=== PATIENT | male | born 1940 | race Caucasian/White ===

== ENCOUNTER 2022-10-18 14:02 | Emergency (ER) | payer OTHER, SELFPAY ==
[2022-10-18 14:28] VITALS: BP 113/54; PULSE 80; RESP 18; TEMP 35.9; O2SAT 100
[2022-10-18 15:55] LABS: Basophils % 0.2 %; Eosinophils # 0.1 10^3/uL (0.0-0.8); Eosinophils % 1.2 %; Hematocrit 24.7 % (42.0-52.0); Hemoglobin 7.9 g/dL (11.7-16.6); Lymphocytes # 1.1 10^3/uL (0.8-4.8); Lymphocytes % 12.6 %; Mean Corpuscular Volume 96.9 fl (80-94); Mean Platelet Volume 8.5 fL (7.4-10.4); Monocytes # 0.6 10^3/uL (0.2-0.9); Monocytes % 7.3 %; Neutrophils # 6.67 10^3/uL (1.8-7.7); Neutrophils % 78.2 %; Nucleated Red Blood Cells % 0 %; Platelet Count 381 10^3/cmm (130-400); Red Blood Count 2.55 10^6/uL (4.1-5.3); Red Cell Distribution Width 13.5 % (12.1-15.1); White Blood Count 8.5 10^3/uL (4.0-10.0)
[2022-10-18 15:58] VITALS: BP 122/60; PULSE 69; RESP 22; TEMP 36.9; O2SAT 100
[2022-10-18 16:01] VITALS: PULSE 70; RESP 20; O2SAT 100
--- NOTE | 2022-10-18 16:14 | W.ED.NAVMDI ---
HPI - Nausea/Vomiting/Diarrhea General: Chief complaint: Nausea/Vomiting/Diarrhea Stated complaint: Not able to stop going number 2 Time Seen by Provider: 10/18/22 15:36 History of Present Illness: 82-year-old male presents with diarrhea. Patient reports ports that he has been having diarrhea for couple days nonstop patient denies any abdominal pain, nausea vomiting, fevers chills or cough. Family reports that he has a loose rectal sphincter and it the diarrhea is just running out over the last day or so. Patient reports he is here because it is just bothering him because he is making a mess of his bridges, bed everything else. Associated nausea: No Associated symtoms: Denies chest pain, nausea or palpitations Review of Systems Const: Denies: fever(s) or chills Card: Denies: chest pain or palpitations Resp: Denies: dyspnea, productive cough or wheezing GI: Reports: diarrhea; Denies: abdominal pain, nausea or vomiting : Denies: flank pain or difficulty urinating Skin/Breast: Denies: rash Physical Exam Const: COMMON NORMALS: no acute distress, patient oriented x3 and alert HENMT: COMMON NORMALS: hearing grossly normal bilaterally and moist oral mucous membranes Resp: COMMON NORMALS: normal respiratory effort, No use of accessory muscles and clear to auscultation bilaterally AUSCULTATION: clear to auscultation bilaterally Cardio: COMMON NORMALS: regular rate and regular rhythm RATE: regular rate RHYTHM: regular rhythm GI: COMMON NORMALS: Soft to palpation and non-tender PALPATION: Yes Soft to palpation Extremity: COMMON NORMALS: capillary refill normal and no pedal edema Neuro: COMMON NORMALS: patient oriented x3 and no focal motor deficits SENSORIUM/ORIENTATION: Yes alert Psych: COMMON NORMALS: mental status grossly normal, cooperative and normal affect Course Vital Signs: Vital signs: Vital Signs Temperature 98.4 F 10/18/22 15:58 Pulse Rate 68 10/18/22 17:12 Respiratory Rate 20 H 10/18/22 16:01 Blood Pressure 123/61 10/18/22 17:12 Pulse Oximetry 100 10/18/22 17:12 Oxygen Delivery Me thod 10/18/22 16:01 Oxygen Flow Rate 4 10/18/22 16:01 MDM - Nausea/Vomiting/Diarrhea Medical Decision Making Patient feels like he got significant relief from the Lomotil. I will prescribe him Lomotil along with Cipro and Flagyl to help with his loose stool. Patient should follow with a primary care provider next week to recheck his hemoglobin. There is no complaints of bright red stool. Maybe some mild dark diarrhea. Patient is not having abdominal pain or other symptoms. Lab Data 10/18/22 15:49 10/18/22 15:49 Laboratory Results WBC 8.5 10^3/uL (4.0-10.0) 10/18/22 15:49 RBC 2.55 10^6/uL (4.1-5.3) L 10/18/22 15:49 Hgb 7.9 g/dL (11.7-16.6) L 10/18/22 15:49 Hct 24.7 % (42.0-52.0) L 10/18/22 15:49 MCV 96.9 fl (80-94) H 10/18/22 15:49 MCH 31.0 pg (28.0-34.0) 10/18/22 15:49 MCHC 32.0 g/dL (30.0-36.0) 10/18/22 15:49 RDW 13.5 % (12.1-15.1) 10/18/22 15:49 Plt Count 381 10^3/cmm (130-400) 10/18/22 15:49 MPV 8.5 fL (7.4-10.4) 10/18/22 15:49 Neut % (Auto) 78.2 % 10/18/22 15:49 Lymph % (Auto) 12.6 % 10/18/22 15:49 [place] % (Auto) 7.3 % 10/18/22 15:49 Eos % (Auto) 1.2 % 10/18/22 15:49 Baso % (Auto) 0.2 % 10/18/22 15:49 Neut # (Auto) 6.67 10^3/uL (1.8-7.7) 10/18/22 15:49 Lymph # (Auto) 1.1 10^3/uL (0.8-4.8) 10/18/22 15:49 [place] # (Auto) 0.6 10^3/uL (0.2-0.9) 10/18/22 15:49 Eos # (Auto) 0.1 10^3/uL (0.0-0.8) 10/18/22 15:49 Baso # (Auto) 0.0 10^3/uL (0.0-0.1) 10/18/22 15:49 Nucleated RBC % (auto) 0 % 10/18/22 15:49 Nucleated RBCs # 0.0 /100WBC 10/18/22 15:49 Sodium 133 mmol/L (136-145) L 10/18/22 15:49 Potassium 4.6 mmol/L (3.5-5.1) 10/18/22 15:49 Chloride 96 mmol/L (98-107) L 10/18/22 15:49 Carbon Dioxide 26 mmol/L (22-29) 10/18/22 15:49 Anion Gap 15.6 (5-19) 10/18/22 15:49 BUN 17 mg/dL (8-23) 10/18/22 15:49 Creatinine 1.0 mg/dL (0.7-1.2) 10/18/22 15:49 GFR Calculation Not Reportable 10/18/22 15:49 Glucose 129 mg/dL (65-115) H 10/18/22 15:49 Calculated Osmolality 279 mOsm/kg (285-295) L 10/18/22 15:49 Calcium 9.4 mg/dL (8.5-10.5) 10/18/22 15:49 Total Bilirubin 0.2 mg/dL (0.15-1.2) 10/18/22 15:49 AST 12 U/L (0-40) 10/18/22 15:49 ALT 8 U/L (0-41) 10/18/22 15:49 Alkaline Phosphatase 95 U/L (40-130) 10/18/22 15:49 C-Reactive Protein 17.2 mg/L (0.0-4.9) H 10/18/22 15:49 Total Protein 6.4 g/dL (6.6-8.7) L 10/18/22 15:49 Albumin 3.6 g/dL (3.5-5.2) 10/18/22 15:49 Globulin 2.8 g/dL (1.3-4.6) 10/18/22 15:49 Lipase 16 U/L (13-60) 10/18/22 15:49 Urine Color Niki (Yellow) 10/18/22 15:57 Urine Appearance Hazy (CLEAR) A 10/18/22 15:57 Urine pH 5 (5-7) 10/18/22 15:57 Ur Specific [place] 1.020 (1.005-1.030) 10/18/22 15:57 Urine Protein 2+ (Negative) H 10/18/22 15:57 Urine Glucose (UA) Norm (Normal) 10/18/22 15:57 Urine Ketones 1+ (Negative) H 10/18/22 15:57 Urine Blood 2+ (Negative) H 10/18/22 15:57 Urine Nitrate Negative (Negative) 10/18/22 15:57 Urine Bilirubin Neg (Negative) 10/18/22 15:57 Urine Urobilinogen 1 mg/dL (Negative) H 10/18/22 15:57 Ur Leukocyte Esterase 2+ (Negative) H 10/18/22 15:57 Urine RBC 5-10 /hpf (0-2) H 10/18/22 15:57 Urine WBC 25-40 /hpf (0-5) H 10/18/22 15:57 Ur Squamous Epith Cells 0-4 /hpf (0-5) H 10/18/22 15:57 Amorphous Sediment Not Reportable 10/18/22 15:57 Urine Bacteria 2+ /hpf (NONE) H 10/18/22 15:57 Influenza Type A Ag negative (Negative) 10/18/22 16:09 Influenza Type B Ag negative (Negative) 10/18/22 16:09 SARS-CoV-2 Ag (Rapid) negative (Negative) 10/18/22 16:09 Discharge Plan Discharge Condition: Stable Coding Level of Care Code ED Magnetic Tape Composer Operator for Chg Fwd Exam Comprehensive
[2022-10-18] MEDS: diphenoxylate/atropine Tablet 1 TAB PO (16:16)
[2022-10-18] MEDS: sodium chloride 0.9% 500 ML IV (16:16)
[2022-10-18 16:18] LABS: Alanine Aminotransferase 8 U/L (0-41); Albumin Level 3.6 g/dL (3.5-5.2); Alkaline Phosphatase 95 U/L (40-130); Anion Gap 15.6 (5-19); Aspartate Amino Transferase 12 U/L (0-40); Blood Urea Nitrogen 17 mg/dL (8-23); C Reactive Protein 17.2 mg/L (0.0-4.9); Calcium 9.4 mg/dL (8.5-10.5); Carbon Dioxide 26 mmol/L (22-29); Chloride 96 mmol/L (98-107); Globulin 2.8 g/dL (1.3-4.6); Glucose 129 mg/dL (65-115); Lipase 16 U/L (13-60); Osmolality Calculated 279 mOsm/kg (285-295); Potassium 4.6 mmol/L (3.5-5.1); Sodium 133 mmol/L (136-145); Total Bilirubin 0.2 mg/dL (0.15-1.2); Total Protein 6.4 g/dL (6.6-8.7)
[2022-10-18 16:35] LABS: Influenza A by IFA negative (Negative); Influenza B by IFA negative (Negative)
[2022-10-18 16:36] LABS: SARS Covid-2 Antigen negative (Negative)
[2022-10-18 16:53] LABS: Urine Appearance Hazy (CLEAR); Urine Color Amber (Yellow)
[2022-10-18 16:54] LABS: Blood Urine 2+ (Negative); Glucose Urine UA Norm (Normal); Ketones Urine 1+ (Negative); Protein Urine 2+ (Negative); pH Urine 5 (5-7)
[2022-10-18 16:55] LABS: Add Urine Microscopic? YES; Bilirubin Urine Neg (Negative); Leukocyte Esterase Urine 2+ (Negative); Nitrate Urine Negative (Negative); Urobilinogen Urine 1 mg/dL (Negative)
[2022-10-18 16:57] LABS: Add Urine Culture? Yes; Bacteria Urine 2+ /hpf; Squamous Epithelial Cell Urine 0-4 /hpf (0-5); WBC Urine 25-40 /hpf (0-5)
[2022-10-18 17:12] VITALS: BP 123/61; PULSE 68; O2SAT 100
[2022-10-18 17:30] VITALS: BP 122/61; PULSE 66; O2SAT 100
[2022-10-18 18:10] VITALS: BP 116/57; PULSE 73; RESP 16; O2SAT 100
== END 2022-10-18 18:18 | disposition home or self-care (01) ==
PROVIDERS: Emergency Provider Student in an Organized Health Care Education/Training Program
DX: R11.2 Nausea with vomiting, unspecified (principal); R19.7 Diarrhea, unspecified; R10.9 Unspecified abdominal pain; Z20.822 Contact with and (suspected) exposure to COVID-19
CPT/HCPCS: 80053; 81001; 83690; 85025; 86140; 87077; 87086; 87186; 87426; 87804; 99284; J7040

== ENCOUNTER 2022-11-20 15:27 | Emergency (ER) | payer OTHER, SELFPAY ==
[2022-11-20 15:34] VITALS: BP 131/53; PULSE 66; RESP 14; TEMP 36.8; O2SAT 100; BMI 20.7
--- NOTE | 2022-11-20 15:49 | XR_ITS ---
WS: [id number] Portable AP upright chest, 11/20/2022 Clinical Data: cp Comparison: None. Findings: No nodules, masses or effusions are seen. The heart is normal. The pulmonary vascularity is not increased. No pneumonia or pneumothorax is seen. The diaphragms are flattened. There are midline sternotomy sutures and surgical sutures overlying the central portion of the heart. The aortic arch shows calcification and tortuosity. There are monitor leads on the chest wall. XR/XR chest 1V portable [id number] Impression: Atherosclerosis and hyperinflation.
--- NOTE | 2022-11-20 15:49 | W.ED.CHESTPA ---
HPI - Chest Pain General: Chief Complaint: Chest Pain Stated Complaint: CHEST PAIN Time Seen by Provider: 11/20/22 15:49 History of Present Illness: Mr. Gann is an 82-year-old gentleman with history of CAD presenting to the emergency department due to chest pain. He reports being at his baseline health past few days and describes a short-lived episode of chest pain in the middle of his chest without significant radiation or other typical cardiac features. He describes history of angina and reports that this feels different from prior MIs. Symptoms have subsequently resolved. No other specific changes in health, exacerbating, or alleviating factors identified. Onset (ago): hour(s) Timing of current episode: now resolved Prior episodes: Yes Onset: during rest Pain location: left chest Severity: moderate Quality: sharp Relieving factors: nothing Exacerbating factors: nothing Associated symptoms: Reports no associated symptoms Review of Systems General: Reports: 10 or more systems reviewed and unremarkable except in HPI and below PFSH ED PFSH: Medical History (Updated 11/30/22 @ 19:22 by Steve Mueller MD) CAD (coronary artery disease) Surgical History (Updated 11/30/22 @ 19:22 by Steve Mueller MD) No significant past surgical history Physical Exam Const: COMMON NORMALS: alert GENERAL APPEARANCE: cooperative and well developed HENMT: COMMON NORMALS: normocephalic and atraumatic HEAD & SCALP: normocephalic and atraumatic Eye: COMMON NORMALS: conjunctivae normal CONJUNCTIVA: Yes conjunctivae normal SCLERA: sclerae normal Neck/C-Spine: COMMON NORMALS: supple GENERAL: Yes trachea midline Resp: COMMON NORMALS: clear to auscultation bilaterally EFFORT & INSPECTION: Yes able to speak in complete sentences AUSCULTATION: clear to auscultation bilaterally Cardio: COMMON NORMALS: regular rate and regular rhythm RATE: regular rate RHYTHM: regular rhythm GI: COMMON NORMALS: Soft to palpation PALPATION: Yes Soft to palpation and No Tenderness to palpation present (GI) Extremity: GENERAL: Yes normal exam except as noted and No edema Neuro: COMMON NORMALS: moves all extremities SENSORIUM/ORIENTATION: Yes alert and No Orientation impaired Psych: COMMON NORMALS: mental status grossly normal and Normal thought process present THOUGHT PROCESS: Normal thought process present Course Vital Signs: Vital signs: Vital Signs Temperature 98.3 F 11/20/22 15:34 Pulse Rate 66 11/20/22 18:30 Respiratory Rate 20 H 11/20/22 17:42 Blood Pressure 141/58 11/20/22 18:30 Pulse Oximetry 100 11/20/22 18:30 Oxygen Delivery Me thod 11/20/22 17:42 Oxygen Flow Rate 4 11/20/22 15:34 MDM - Chest Pain Medical Decision Making 82 gentleman presenting to the emergency department for chest pain. Episode is resolved and he reports that this feels not similar to prior cardiac chest pain. EKG notable for sinus rhythm with interventricular conduction delay, no STEMI. Labs with no leukocytosis, mild macrocytic anemia improved from prior, mild hyponatremia. Negative range 2-hour delta troponin. Elevated BNP without gross evidence of overload on clinical exam. Chest x-ray with no lobar consolidation or pneumothorax. Upon serial reassessment patient remains chest pain-free. Most likely etiology of patient symptoms is unspecified chest pain. The results of ED evaluation were discussed with the patient including possible disposition options. I discussed risk stratification by heart score and estimated risk of major adverse cardiac events. The patient wishes to proceed with outpatient management. I discussed prescriptions and/or symptomatic cares (if applicable) including appropriate and responsible use, followup plan, and return precautions. The patient verbalized understanding and felt safe for discharge. Medical Records I reviewed the patient's medical records. Lab Data I reviewed the patient's lab results. 11/20/22 15:40 11/20/22 15:40 Radiology Impressions Chest X-Ray 11/20/22 15:49 Impression: Atherosclerosis and hyperinflation. Laboratory Results WBC 5.5 10^3/uL (4.0-10.0) 11/20/22 15:40 RBC 3.03 10^6/uL (4.1-5.3) L 11/20/22 15:40 Hgb 9.5 g/dL (11.7-16.6) L 11/20/22 15:40 Hct 28.8 % (42.0-52.0) L 11/20/22 15:40 MCV 95.0 fl (80-94) H 11/20/22 15:40 MCH 31.4 pg (28.0-34.0) 11/20/22 15:40 MCHC 33.0 g/dL (30.0-36.0) 11/20/22 15:40 RDW 13.9 % (12.1-15.1) 11/20/22 15:40 Plt Count 303 10^3/cmm (130-400) 11/20/22 15:40 MPV 9.4 fL (7.4-10.4) 11/20/22 15:40 Neut % (Auto) 67.6 % 11/20/22 15:40 Lymph % (Auto) 20.8 % 11/20/22 15:40 [place] % (Auto) 8.7 % 11/20/22 15:40 Eos % (Auto) 1.8 % 11/20/22 15:40 Baso % (Auto) 0.7 % 11/20/22 15:40 Neut # (Auto) 3.74 10^3/uL (1.8-7.7) 11/20/22 15:40 Lymph # (Auto) 1.2 10^3/uL (0.8-4.8) 11/20/22 15:40 [place] # (Auto) 0.5 10^3/uL (0.2-0.9) 11/20/22 15:40 Eos # (Auto) 0.1 10^3/uL (0.0-0.8) 11/20/22 15:40 Baso # (Auto) 0.0 10^3/uL (0.0-0.1) 11/20/22 15:40 Nucleated RBC % (auto) 0 % 11/20/22 15:40 Nucleated RBCs # 0.0 /100WBC 11/20/22 15:40 PT 13.60 SECONDS (12.1-14.9) 11/20/22 16:14 INR 1.01 (0.8-1.2) 11/20/22 16:14 APTT 29.5 SECONDS (23.9-36.7) 11/20/22 16:14 Sodium 130 mmol/L (136-145) L 11/20/22 15:40 Potassium 4.8 mmol/L (3.5-5.1) 11/20/22 15:40 Chloride 92 mmol/L (98-107) L 11/20/22 15:40 Carbon Dioxide 28 mmol/L (22-29) 11/20/22 15:40 Anion Gap 14.8 (5-19) 11/20/22 15:40 BUN 17 mg/dL (8-23) 11/20/22 15:40 Creatinine 0.8 mg/dL (0.7-1.2) 11/20/22 15:40 GFR Calculation Not Reportable 11/20/22 15:40 Glucose 117 mg/dL (65-115) H 11/20/22 15:40 Calculated Osmolality 273 mOsm/kg (285-295) L 11/20/22 15:40 Calcium 9.3 mg/dL (8.5-10.5) 11/20/22 15:40 Total Bilirubin 0.3 mg/dL (0.15-1.2) 11/20/22 15:40 AST 14 U/L (0-40) 11/20/22 15:40 ALT 11 U/L (0-41) 11/20/22 15:40 Alkaline Phosphatase 99 U/L (40-130) 11/20/22 15:40 Troponin T Baseline 19 ng/L (0-15) H 11/20/22 15:40 Troponin T 120 Minute 17.56 ng/L (0-15) H 11/20/22 17:38 Delta Troponin T -1.44 ABS# (0-10) L 11/20/22 17:38 NT-Pro-B Natriuret Pep 2368 pg/mL (0-450) H 11/20/22 15:40 Total Protein 6.7 g/dL (6.6-8.7) 11/20/22 15:40 Albumin 4.3 g/dL (3.5-5.2) 11/20/22 15:40 Globulin 2.4 g/dL (1.3-4.6) 11/20/22 15:40 Lipase 35 U/L (13-60) 11/20/22 15:40 Discharge Plan Discharge Patient Disposition: Home Clinical Impression: Chest pain, Anemia, Mild dehydration Condition: Stable Prescriptions: No Action cefdinir 300 mg capsule 300 mg PO BID clonazepam 0.25 mg tablet,disintegrating 0.25 mg PO DAILY PRN (Reason: Anxiety) Discharge Orders: Discharge ED (Routine); Ordered 11/20/22 Ordered By: Steve Mueller Discharge Diet: Usual diet Discharge Activity: Increase activity as tolerated Patient Instructions: Chest Pain (ED), Dehydration (ED) Activity Restrictions/Additional Instructions: Thank you for visiting the emergency department. You were seen and evaluated for chest pain episode. The exact cause of your symptoms is unclear though does not appear to need hospitalization at this time. Please follow-up with your primary care provider. Please follow-up with cardiology. Return to the emergency department for worsening symptoms or anything that you are concerned about and feel needs emergency department evaluation. Coding Level of Care Code ED Residential Green Building Designer for Cam Mnuoz
--- NOTE | 2022-11-20 15:51 | PC.NURSE ---
Pt on bedside sap basis
[2022-11-20 16:07] LABS: Basophils % 0.7 %; Eosinophils # 0.1 10^3/uL (0.0-0.8); Eosinophils % 1.8 %; Hematocrit 28.8 % (42.0-52.0); Hemoglobin 9.5 g/dL (11.7-16.6); Lymphocytes # 1.2 10^3/uL (0.8-4.8); Lymphocytes % 20.8 %; Mean Corpuscular Hemoglobin 31.4 pg (28.0-34.0); Mean Platelet Volume 9.4 fL (7.4-10.4); Monocytes # 0.5 10^3/uL (0.2-0.9); Monocytes % 8.7 %; Neutrophils # 3.74 10^3/uL (1.8-7.7); Neutrophils % 67.6 %; Nucleated Red Blood Cells % 0 %; Platelet Count 303 10^3/cmm (130-400); Red Blood Count 3.03 10^6/uL (4.1-5.3); Red Cell Distribution Width 13.9 % (12.1-15.1); White Blood Count 5.5 10^3/uL (4.0-10.0)
--- NOTE | 2022-11-20 16:16 | ECG_ITS ---
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 Measurements Intervals [place] Rate: 63 P: -71 [place]: 203 QRS: -22 QRSD: 134 T: 89 QT: 449 QTc: 460 Interpretive Statements SINUS RHYTHM WITH OCCASIONAL VENTRICULAR PREMATURE COMPLEXES INTRAVENTRICULAR CONDUCTION DELAY [130+ ms QRS DURATION] SEPTAL MYOCARDIAL INFARCTION , POSSIBLY ACUTE [40+ ms Q WAVE IN V1/V2] ACUTE SD No previous ECG available for comparison Electronically Signed On 11-20-2022 20:07:06 TERRAZZO INSTALLER by Arianna Cason M.D. [id number]
[2022-11-20 16:27] LABS: Troponin(5th) Baseline 19 ng/L (0-15)
[2022-11-20 16:34] LABS: INR 1.01 (0.8-1.2)
[2022-11-20 16:35] LABS: Partial Thromboplastin Time 29.5 SECONDS (23.9-36.7)
[2022-11-20 16:36] LABS: Alanine Aminotransferase 11 U/L (0-41); Albumin Level 4.3 g/dL (3.5-5.2); Alkaline Phosphatase 99 U/L (40-130); Anion Gap 14.8 (5-19); Aspartate Amino Transferase 14 U/L (0-40); Blood Urea Nitrogen 17 mg/dL (8-23); Calcium 9.3 mg/dL (8.5-10.5); Carbon Dioxide 28 mmol/L (22-29); Chloride 92 mmol/L (98-107); Globulin 2.4 g/dL (1.3-4.6); Glucose 117 mg/dL (65-115); Lipase 35 U/L (13-60); NT Pro B Type Natriuretic Pept 2368 pg/mL (0-450); Osmolality Calculated 273 mOsm/kg (285-295); Potassium 4.8 mmol/L (3.5-5.1); Sodium 130 mmol/L (136-145); Total Bilirubin 0.3 mg/dL (0.15-1.2); Total Protein 6.7 g/dL (6.6-8.7)
[2022-11-20 17:42] VITALS: BP 155/75; PULSE 75; RESP 20; O2SAT 100
--- NOTE | 2022-11-20 17:53 | ECG_ITS ---
[facility] Test Date: 2022-11-20 Pat Name: Juan Gann Department: Room: Gender: Male Agriscience Instructor: : 1940 Requested By: Steve Mueller Order Number: [id number] Jay Jay MD: Arianna Cason M.D. Measurements Intervals [place] Rate: 69 P: -62 MO: 151 QRS: -6 QRSD: 138 T: 81 QT: 431 QTc: 464 Interpretive Statements ECTOPIC ATRIAL RHYTHM INTRAVENTRICULAR CONDUCTION DELAY [130+ ms QRS DURATION] SEPTAL MYOCARDIAL INFARCTION , POSSIBLY ACUTE [40+ ms Q WAVE IN V1/V2] ACUTE OH Compared to ECG 11/20/2022 16:16:34 Ectopic atrial rhythm now present Sinus rhythm no longer present Ventricular premature complex(es) no longer present Myocardial infarct finding still present Electronically Signed On 11-20-2022 20:18:22 SAMPLER OVENS by Arianna Cason M.D. [email or web address]/[id number]
[2022-11-20 18:30] VITALS: BP 141/58; PULSE 66; O2SAT 100
[2022-11-20 18:43] LABS: Troponin 5 2HR 17.56 ng/L (0-15)
[2022-11-20 18:48] LABS: Troponin 5 2HR Delta -1.44 ABS# (0-10)
== END 2022-11-20 19:12 | disposition home or self-care (01) ==
PROVIDERS: Emergency Provider Emergency Medicine
DX: R07.9 Chest pain, unspecified (principal); D64.9 Anemia, unspecified; E86.0 Dehydration; E87.1 Hypo-osmolality and hyponatremia; I25.10 Atherosclerotic heart disease of native coronary artery without angina pectoris
CPT/HCPCS: 36415; 71045; 80053; 83690; 83880; 84484; 85025; 85610; 85730; 93005; 99285

== ENCOUNTER 2022-12-01 21:36 | Emergency (ER) | payer OTHER, SELFPAY ==
[2022-12-01 21:39] VITALS: BP 111/41; PULSE 65; RESP 16; TEMP 36.6; O2SAT 96; BMI 20.7
--- NOTE | 2022-12-01 21:43 | ECG_ITS ---
[facility] Test Date: 2022-12-01 Pat Name: Juan Gann Department: Room: Gender: Male Credentialing Coordinator: : 1940 Requested By: Ruth Wayne Order Number: [id number] Jay Jay MD: Beni Yadav M.D. Measurements Intervals [place] Rate: 62 P: -72 NM: 172 QRS: -10 QRSD: 129 T: 68 QT: 455 QTc: 465 Interpretive Statements SINUS RHYTHM WITH MARKED RHYTHM IRREGULARITY, POSSIBLE NON-CONDUCTED PAC, SA BLOCK, AV BLOCK, OR SINUS PAUSE SEPTAL MYOCARDIAL INFARCTION , POSSIBLY RECENT Compared to ECG 11/20/2022 17:53:10 Ectopic atrial rhythm no longer present Intraventricular conduction delay no longer present Myocardial infarct finding still present Electronically Signed On 12-01-2022 23:41:16 WELLHEAD PUMPER by Beni Yadav M.D. [id number]
--- NOTE | 2022-12-01 21:43 | CTR_ITS ---
PROCEDURE INFORMATION: Exam: CT Head Without Contrast Exam date and time: 12/01/2022 9:54 PM Age: 82 years old Clinical indication: Condition or disease; Convulsions or seizures; Patient HX: Arrival via EMS for seizure activity. Mildy post ictal. History of seizure disorder. TECHNIQUE: Imaging protocol: Computed tomography of the head without contrast. Radiation optimization: All CT scans at this facility use at least one of these dose optimization techniques: automated exposure control; mA and/or kV adjustment per patient size (includes targeted exams where dose is matched to clinical indication); or iterative reconstruction. REPORTING DATA: Count of CT and Cardiac NM exams in prior 12 months: This patient has received 0 known CTs and 0 known cardiac nuclear medicine studies in the 12 months prior to the current study. COMPARISON: No relevant prior studies available. RADIATION DOSE METRICS: Total DLP (mGy-cm): 2959.2 FINDINGS: Brain: Large amount diffuse white matter disease likely reflecting chronic microvascular ischemic changes. Cerebral ventricles: No ventriculomegaly. Paranasal sinuses: Visualized sinuses are unremarkable. No fluid levels. Mastoid air cells: Left mastoid air cell opacification may reflect an infectious or inflammatory process Bones/joints: Unremarkable. No acute fracture. Soft tissues: Unremarkable. CT/CT head wo con* [id number] IMPRESSION: 1. Negative for intracranial hemorrhage or mass effect. 2. Left mastoid air cell opacification may reflect an infectious or inflammatory process
[2022-12-01 21:52] LABS: Basophils % 0.4 %; Eosinophils # 0.1 10^3/uL (0.0-0.8); Eosinophils % 1.1 %; Hematocrit 26.5 % (42.0-52.0); Hemoglobin 8.5 g/dL (11.7-16.6); Lymphocytes # 1.1 10^3/uL (0.8-4.8); Lymphocytes % 10.8 %; Mean Corpuscular HGB Conc 32.1 g/dL (30.0-36.0); Mean Corpuscular Hemoglobin 31.5 pg (28.0-34.0); Mean Corpuscular Volume 98.1 fl (80-94); Mean Platelet Volume 8.7 fL (7.4-10.4); Monocytes # 0.8 10^3/uL (0.2-0.9); Monocytes % 7.8 %; Neutrophils # 7.99 10^3/uL (1.8-7.7); Neutrophils % 79.4 %; Nucleated Red Blood Cells % 0 %; Platelet Count 251 10^3/cmm (130-400); White Blood Count 10.1 10^3/uL (4.0-10.0)
--- NOTE | 2022-12-01 22:01 | ED_ITS ---
HPI - Seizure General: Chief Complaint: Seizure Stated Complaint: possible seizure Time Seen by Provider: 12/01/22 21:38 Source: patient and EMS Mode of arrival: EMS Limitations: no limitations History of Present Illness: HPI Narrative: 82-year-old male who states he has had a history of seizures in the past but he has not had one in years he had a seizure tonight roughly an hour ago witnessed by family lasted less than a minute patient is now awake alert answering all my questions appropriately he does not remember any of the events. Denies headache denies fever denies any recent illness. Associated symptoms: Deny chest pain, chills or fever(s) Review of Systems Const: Denies: fever(s), chills, body aches or change in appetite Eyes: Denies: blurry vision or eye discomfort ENMT: Denies: throat pain or dental pain Card: Denies: chest pain Resp: Denies: dyspnea GI: Denies: abdominal pain, nausea, vomiting or diarrhea : Denies: dysuria Musc: Denies: neck pain or back pain Skin/Breast: Denies: rash Neuro: Reports: seizure-like activity Psych: Denies: depression Doc/Lymph: Denies: easy bruising All/Imm: Denies: urticaria PFSH ED PFSH: Medical History CAD (coronary artery disease) Surgical History (Updated 11/30/22 @ 19:22 by Steve Mueller MD) No significant past surgical history Social History (Updated 12/01/22 @ 22:02 by Ruth Wayne MD) Substance/Drug Use: never Physical Exam Const: COMMON NORMALS: no acute distress, patient oriented x3 and healthy appearing HENMT: COMMON NORMALS: normocephalic and atraumatic HEAD & SCALP: nor mocephalic and atraumatic Eye: COMMON NORMALS: Equal, round and reactive pupils present and EOMs intact bilaterally PUPIL: Yes Equal, round and reactive pupils present Neck/C-Spine: COMMON NORMALS: full ROM and supple Chest: COMMONS NORMALS: normal inspection of the chest and normal palpation of entire chest wall Resp: COMMON NORMALS: normal respiratory effort, No retractions, No use of accessory muscles and clear to auscultation bilaterally AUSCULTATION: clear to auscultation bilaterally Cardio: COMMON NORMALS: regular rate, regular rhythm and No murmurs present (Cardio) RATE: regular rate RHYTHM: regular rhythm GI: COMMON NORMALS: Normal to inspection, nondistended, normoactive bowel sounds present, Soft to palpation, non-tender and no masses PALPATION: Yes Soft to palpation Extremity: COMMON NORMALS: normal to inspection and full ROM Neuro: COMMON NORMALS: patient oriented x3, moves all extremities and no focal motor deficits Psych: COMMON NORMALS: mental status grossly normal, Normal thought process present and cooperative THOUGHT PROCESS: Normal thought process present Skin: COMMON NORMALS: no rashes or lesions noted and no wounds GENERAL SKIN EXAM: no rashes or lesions noted Course Vital Signs: Vital signs: Vital Signs Temperature 97.8 F 12/01/22 21:39 Pulse Rate 73 12/01/22 23:06 Respiratory Rate 20 H 12/01/22 23:06 Blood Pressure 99/47 12/01/22 23:06 Pulse Oximetry 99 12/01/22 23:06 Oxygen Delivery Me thod 12/01/22 22:09 Oxygen Flow Rate 2 12/01/22 22:09 MDM - Seizure MDM Narrative Medical decision making narrative: Patient presents here with a possible seizure from history is unsure if he actureal arringtony had a seizure his head CT and blood work here is normal EKG shows no changes from previous troponins are normal he is well-appearing here he feels improved he is stable for discharge he is to follow-up with PCP and return if worsening he understands agrees to plan. Lab Data 12/01/22 21:45 12/01/22 21:45 Labs: Radiology Impressions Head CT 12/01/22 21:43 IMPRESSION: 1. Negative for intracranial hemorrhage or mass effect. 2. Left mastoid air cell opacification may reflect an infectious or inflammatory process Chest X-Ray 12/01/22 23:30 IMPRESSION: 1. Cardiomegaly. 2. Emphysematous changes. 3. Patchy bilateral left greater than right mid to lower lung field ground-glass airspace opacities reflecting possible parenchymal scarring, atelectasis versus infiltrate may also be a consideration. 4. Sternotomy wires. Laboratory Results WBC 10.1 10^3/uL (4.0-10.0) H 12/01/22 21:45 RBC 2.70 10^6/uL (4.1-5.3) L 12/01/22 21:45 Hgb 8.5 g/dL (11.7-16.6) L 12/01/22 21:45 Hct 26.5 % (42.0-52.0) L 12/01/22 21:45 MCV 98.1 fl (80-94) H 12/01/22 21:45 MCH 31.5 pg (28.0-34.0) 12/01/22 21:45 MCHC 32.1 g/dL (30.0-36.0) 12/01/22 21:45 RDW 14.0 % (12.1-15.1) 12/01/22 21:45 Plt Count 251 10^3/cmm (130-400) 12/01/22 21:45 MPV 8.7 fL (7.4-10.4) 12/01/22 21:45 Neut % (Auto) 79.4 % 12/01/22 21:45 Lymph % (Auto) 10.8 % 12/01/22 21:45 [place] % (Auto) 7.8 % 12/01/22 21:45 Eos % (Auto) 1.1 % 12/01/22 21:45 Baso % (Auto) 0.4 % 12/01/22 21:45 Neut # (Auto) 7.99 10^3/uL (1.8-7.7) H 12/01/22 21:45 Lymph # (Auto) 1.1 10^3/uL (0.8-4.8) 12/01/22 21:45 [place] # (Auto) 0.8 10^3/uL (0.2-0.9) 12/01/22 21:45 Eos # (Auto) 0.1 10^3/uL (0.0-0.8) 12/01/22 21:45 Baso # (Auto) 0.0 10^3/uL (0.0-0.1) 12/01/22 21:45 Nucleated RBC % (auto) 0 % 12/01/22 21:45 Nucleated RBCs # 0.0 /100WBC 12/01/22 21:45 Sodium 139 mmol/L (136-145) 12/01/22 21:45 Potassium 4.5 mmol/L (3.5-5.1) 12/01/22 21:45 Chloride 101 mmol/L (98-107) 12/01/22 21:45 Carbon Dioxide 31 mmol/L (22-29) H 12/01/22 21:45 Anion Gap 11.5 (5-19) 12/01/22 21:45 BUN 23 mg/dL (8-23) 12/01/22 21:45 Creatinine 0.9 mg/dL (0.7-1.2) 12/01/22 21:45 GFR Calculation Not Reportable 12/01/22 21:45 Glucose 120 mg/dL (65-115) H 12/01/22 21:45 Calculated Osmolality 293 mOsm/kg (285-295) 12/01/22 21:45 Calcium 8.9 mg/dL (8.5-10.5) 12/01/22 21:45 Total Bilirubin 0.2 mg/dL (0.15-1.2) 12/01/22 21:45 AST 11 U/L (0-40) 12/01/22 21:45 ALT 10 U/L (0-41) 12/01/22 21:45 Alkaline Phosphatase 89 U/L (40-130) 12/01/22 21:45 Troponin T Baseline 23 ng/L (0-15) H 12/01/22 21:45 Troponin T 120 Minute 18.79 ng/L (0-15) H 12/02/22 00:02 Delta Troponin T -4.21 ABS# (0-10) L 12/02/22 00:02 Total Protein 5.8 g/dL (6.6-8.7) L 12/01/22 21:45 Albumin 3.7 g/dL (3.5-5.2) 12/01/22 21:45 Globulin 2.1 g/dL (1.3-4.6) 12/01/22 21:45 EKG Data EKG 1: Attestation: I personally reviewed and interpreted this EKG as follows: EKG interpretation date: 12/01/22 EKG interpretation time: 21:48 Interpretation: nsr hr [address] or t wave abnormalities qrs 129 qtc 461 Discharge Plan Discharge Patient Disposition: Home Clinical Impression: Generalized seizure Prescriptions: No Action cefdinir 300 mg capsule 300 mg PO BID clonazepam 0.25 mg tablet,disintegrating 0.25 mg PO DAILY PRN (Reason: Anxiety) Discharge Orders: Discharge ED (Routine); Ordered 12/02/22 Ordered By: Ruth Wayne Discharge Diet: Advance as tolerated Discharge Activity: Resume usual activity Patient Instructions: Seizures Coding Level of Care Code ED Guest Services Agent for Cam Munoz
[2022-12-01 22:07] LABS: Alanine Aminotransferase 10 U/L (0-41); Albumin Level 3.7 g/dL (3.5-5.2); Alkaline Phosphatase 89 U/L (40-130); Anion Gap 11.5 (5-19); Aspartate Amino Transferase 11 U/L (0-40); Blood Urea Nitrogen 23 mg/dL (8-23); Calcium 8.9 mg/dL (8.5-10.5); Carbon Dioxide 31 mmol/L (22-29); Chloride 101 mmol/L (98-107); Globulin 2.1 g/dL (1.3-4.6); Glucose 120 mg/dL (65-115); Osmolality Calculated 293 mOsm/kg (285-295); Potassium 4.5 mmol/L (3.5-5.1); Sodium 139 mmol/L (136-145); Total Bilirubin 0.2 mg/dL (0.15-1.2); Total Protein 5.8 g/dL (6.6-8.7)
[2022-12-01 22:09] VITALS: BP 97/54; PULSE 70; RESP 18; O2SAT 97
[2022-12-01] MEDS: sodium chloride 0.9% 1,000 ML 999 ML IV (22:39)
[2022-12-01 23:06] VITALS: BP 99/47; PULSE 73; RESP 20; O2SAT 99
--- NOTE | 2022-12-01 23:30 | XRR_ITS ---
PROCEDURE INFORMATION: Exam: XR Chest Exam date and time: 12/01/2022 11:49 PM Age: 82 years old Clinical indication: Pain; Other: Seizure activity; Prior surgery; Surgery date: 6+ months TECHNIQUE: Imaging protocol: Radiologic exam of the chest. Views: 1 view. COMPARISON: CR XR chest 1V portable [id number] 11/20/2022 3:55 PM FINDINGS: Lungs: Emphysematous changes. Patchy bilateral left greater than right mid to lower lung field ground-glass airspace opacities reflecting possible parenchymal scarring, atelectasis versus infiltrate may also be a consideration. Pleural spaces: Unremarkable. No pleural effusion. No pneumothorax. Heart/Mediastinum: Cardiomegaly. Bones/joints: Sternotomy wires. XR/XR chest 1V portable [id number] IMPRESSION: 1. Cardiomegaly. 2. Emphysematous changes. 3. Patchy bilateral left greater than right mid to lower lung field ground-glass airspace opacities reflecting possible parenchymal scarring, atelectasis versus infiltrate may also be a consideration. 4. Sternotomy wires.
[2022-12-01] MEDS: clotrimazole 1% cream 30 gm 1 APPLIC TOPICAL (23:42)
[2022-12-01 23:48] LABS: Troponin(5th) Baseline 23 ng/L (0-15)
--- NOTE | 2022-12-02 00:12 | ECG_ITS ---
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 Measurements Intervals [place] Rate: 67 P: -76 [place]: 135 QRS: -28 QRSD: 130 T: 71 QT: 460 QTc: 486 Interpretive Statements Sinus rhythm WITH OCCASIONAL SUPRAVENTRICULAR PREMATURE COMPLEXES SEPTAL MYOCARDIAL INFARCTION , POSSIBLY ACUTE [40+ ms Q WAVE IN V1/V2] ACUTE VT Compared to ECG 12/01/2022 21:48:01 Myocardial infarct finding still present Electronically Signed On 12-03-2022 16:17:11 GLASS MECHANIC by Arianna Cason M.D. [id number]
[2022-12-02 00:38] LABS: Troponin 5 2HR 18.79 ng/L (0-15)
[2022-12-02 00:42] LABS: Troponin 5 2HR Delta -4.21 ABS# (0-10)
--- NOTE | 2022-12-10 15:10 | DCPLANNER ---
12.05.22 - TCM called patient due to no primary care physician - patient states that they see Dr. Hernandez in [facility]
== END 2022-12-02 01:35 | disposition home or self-care (01) ==
PROVIDERS: Emergency Provider Emergency Medicine
DX: R56.9 Unspecified convulsions (principal); I25.10 Atherosclerotic heart disease of native coronary artery without angina pectoris
CPT/HCPCS: 70450; 71045; 80053; 84484; 85025; 93005; 96365; 99285; J1953; J7030

== ENCOUNTER 2022-12-05 08:38 | Inpatient (IN) | payer OTHER, SELFPAY ==
[2022-12-05] VITALS (34 sets, daily range): BP systolic 118–182; BP diastolic 67–105; PULSE 71–118; RESP 16–35; TEMP 36.4–36.7; O2SAT 84–100; BMI 19.6
--- NOTE | 2022-12-05 08:44 | ED_ITS ---
HPI - SOB/Dyspnea General: Chief Complaint: ER Hold Stated Complaint: DIFFICULTY BREATHING/ WHEEZING Time Seen by Provider: 12/05/22 08:44 History of Present Illness: HPI Narrative: Mr. Gann is an 82-year-old gentleman with significant past medical history with COPD with chronic hypoxic respiratory failure, CAD presenting to the emergency department for shortness of breath and cough. He reports onset of worsening of symptoms 3 to 4 days ago. Mildly productive cough with clear sputum. Exertional dyspnea and generalized malaise. Denies other specific infectious symptoms. Intensity symptoms is moderate to severe. Course has worsened. No other specific changes in health, exacerbating, or alleviating factors identified. Pertinent past history: COPD Onset (ago): day(s) Timing: progressively worsening Severity: moderate Exacerbating factors: exertion Relieving factors: nothing Known history of: COPD Associated symptoms: Reports cough Review of Systems General: Reports: 10 or more systems reviewed and unremarkable except in HPI and below PFSH ED PFSH: Medical History CAD (coronary artery disease) Hypertension Surgical History Hx of CABG No significant past surgical history S/P heart valve repair Physical Exam Const: COMMON NORMALS: alert GENERAL APPEARANCE: cooperative, well developed and ill appearing HENMT: COMMON NORMALS: normocephalic and atraumatic HEAD & SCALP: normoc ephalic and atraumatic Eye: COMMON NORMALS: conjunctivae normal CONJUNCTIVA: Yes conjunctivae normal SCLERA: sclerae normal Neck/C-Spine: COMMON NORMALS: supple GENERAL: Yes trachea midline Resp: EFFORT & INSPECTION: Yes tachypneic AUSCULTATION: rhonchi and bronchial breath sounds Cardio: COMMON NORMALS: regular rate and regular rhythm RATE: regular rate RHYTHM: regular rhythm GI: COMMON NORMALS: Soft to palpation PALPATION: Yes Soft to palpation and No Tenderness to palpation present (GI) Extremity: GENERAL: Yes normal exam except as noted and No edema Neuro: COMMON NORMALS: moves all extremities SENSORIUM/ORIENTATION: Yes alert and No Orientation impaired Psych: COMMON NORMALS: mental status grossly normal and Normal thought process present THOUGHT PROCESS: Normal thought process present Course Vital Signs: Vital signs: Vital Signs Temperature 97.9 F 12/09/22 08:00 Pulse Rate 78 12/09/22 14:00 Respiratory Rate 20 H 12/09/22 14:00 Blood Pressure 139/72 12/09/22 14:00 Pulse Oximetry 92 12/09/22 10:00 Oxygen Delivery Me thod 12/09/22 08:00 Oxygen Flow Rate 4 12/09/22 04:00 Fraction of Inspir ed Oxygen 30 12/09/22 12:00 MDM - SOB/Dyspnea Medical Decision Making 82-year-old gentleman with known history of COPD and chronic oxygen use presenting with respiratory symptoms and worsening respiratory status. Exam as above. EKG demonstrates atrial fibrillation with controlled ventricular response, there is a interventricular conduction delay, no STEMI. Labs notable for leukocytosis, macrocytic anemia which is not significantly changed from prior. Metabolic panel with mild hyponatremia. Negative range 2- hour delta troponin. BNP is elevated. Viral panel pending. Chest x-ray with pulmonary vascular congestion. CT chest demonstrates intersti tial thickening and emphysema without dense consolidation or pneumonia. Patient treated in the emergency department with steroids, RT treatment, Lasix. Patient also treated with BiPAP and medications for anxiolysis. Most likely etiology of patient's symptoms is acute exacerbation of CHF with acute on chronic respiratory failure. The results of ED evaluation were discussed with the patient including plan for admission due to requirement for level of care not available if discharged to prevent significant worsening/deterioration. Patient agreeable with plan. Discussed with hospitalist service who was agreeable to admit patient. Medical Records I reviewed the patient's medical records. Lab Data I reviewed the patient's lab results. 12/09/22 04:22 12/09/22 04:22 Labs/Radiology: Radiology Impressions Chest X-Ray 12/05/22 08:50 IMPRESSION: Imaging findings suggestive of pulmonary congestion. Pneumonia should be excluded clinically. Chest CT 12/05/22 09:26 IMPRESSION: 1. Mild diffuse interstitial thickening. Differential includes mild pulmonary venous congestion and interstitial fibrosis. 2. Centrilobular emphysema. 3. Prior CABG. 4. No dense consolidation or pneumonia. Chest CTA 12/06/22 10:00 IMPRESSION: 1. No pulmonary embolism identified. 2. Compression fracture at T12 with interval mild height loss. 3. Findings concerning for choledocholithiasis with intra and extrahepatic biliary dilatation. Recommend follow-up MRCP versus ERCP. COMMENTS: Consistent with the [place] [employer]'s Incidental Findings Committee white paper (J Am Hansa Radiol 2017): Any incidental adrenal lesion less than 1 cm is likely benign. No follow-up imaging is recommended for these lesions per consensus recommendations based on imaging criteria. Further lab evaluation could be pursued if warranted based on clinical findings. Cholangiopancreatography MRI 12/06/22 11:01 IMPRESSION: Choledocholithiasis with intrahepatic and extrahepatic ductal dilatation as described above. Abdomen/Pelvis CT 12/07/22 09:48 IMPRESSION: 1. Limited evaluation due to lack of intravenous and oral contrast and patient motion. 2. Poorly visualized choledocholithiasis, again noted with intra and extrahepatic biliary dilatation. 3. Fracture of the superior body of T12 again noted with minimal distraction of the fracture fragments anteriorly compared to prior exam. COMMENTS: Evaluation of solid organs and vascular structures is limited as no IV contrast was administered. Laboratory Results WBC 11.7 10^3/uL (4.0-10.0) H 12/05/22 07:54 RBC 2.70 10^6/uL (4.1-5.3) L 12/05/22 07:54 Hgb 8.5 g/dL (11.7-16.6) L 12/05/22 07:54 Hct 26.5 % (42.0-52.0) L 12/05/22 07:54 MCV 98.1 fl (80-94) H 12/05/22 07:54 MCH 31.5 pg (28.0-34.0) 12/05/22 07:54 MCHC 32.1 g/dL (30.0-36.0) 12/05/22 07:54 RDW 14.1 % (12.1-15.1) 12/05/22 07:54 Plt Count 216 10^3/cmm (130-400) 12/05/22 07:54 MPV 9.7 fL (7.4-10.4) 12/05/22 07:54 Neut % (Auto) 80.3 % 12/05/22 07:54 Lymph % (Auto) 8.3 % 12/05/22 07:54 [place] % (Auto) 10.4 % 12/05/22 07:54 Eos % (Auto) 0.2 % 12/05/22 07:54 Baso % (Auto) 0.3 % 12/05/22 07:54 Neut # (Auto) 9.36 10^3/uL (1.8-7.7) H 12/05/22 07:54 Lymph # (Auto) 1.0 10^3/uL (0.8-4.8) 12/05/22 07:54 [place] # (Auto) 1.2 10^3/uL (0.2-0.9) H 12/05/22 07:54 Eos # (Auto) 0.0 10^3/uL (0.0-0.8) 12/05/22 07:54 Baso # (Auto) 0.0 10^3/uL (0.0-0.1) 12/05/22 07:54 Nucleated RBC % (auto) 0 % 12/05/22 07:54 Nucleated RBCs # 0.0 /100WBC 12/05/22 07:54 Specimen Type Arterial 12/05/22 09:02 Sample Site Radial, left 12/05/22 09:02 ABG pH 7.34 (7.35-7.45) L 12/05/22 09:02 ABG pCO2 56.8 mmHg (35-45) H 12/05/22 09:02 ABG pO2 102.0 mmHg (80.0-100.0) H 12/05/22 09:02 ABG HCO3 30.3 mmol/L (22-26) H 12/05/22 09:02 ABG Base Excess 3.8 mmol/L (-2.0-2.0) H 12/05/22 09:02 Ankur Test Pos 12/05/22 09:02 Hematocrit 23.3 % (42-52) L 12/05/22 09:02 Hgb O2 Saturation 95.0 % (95-100) 12/05/22 09:02 Carboxyhemoglobin 3.4 %THgb (0.4-20.1) 12/05/22 09:02 Methemoglobin 0.5 % (0.4-1.5) 12/05/22 09:02 Total Hemoglobin 7.6 g/dL (14-18) L 12/05/22 09:02 O2 Delivery Device Nc 12/05/22 09:02 O2 Liters/Min 3.0 % 12/05/22 09:02 Applications Engineer Manufacturing ID Cak 12/05/22 09:02 Sodium 134 mmol/L (136-145) L 12/05/22 07:54 Potassium 4.6 mmol/L (3.5-5.1) 12/05/22 07:54 Chloride 97 mmol/L (98-107) L 12/05/22 07:54 Carbon Dioxide 28 mmol/L (22-29) 12/05/22 07:54 Anion Gap 13.6 (5-19) 12/05/22 07:54 BUN 24 mg/dL (8-23) H 12/05/22 07:54 Creatinine 0.7 mg/dL (0.7-1.2) 12/05/22 07:54 GFR Calculation Not Reportable 12/05/22 07:54 Glucose 162 mg/dL (65-115) H 12/05/22 07:54 Calculated Osmolality 286 mOsm/kg (285-295) 12/05/22 07:54 Lactic Acid 0.9 mmol/L (0.5-2.2) 12/05/22 09:23 Calcium 9.0 mg/dL (8.5-10.5) 12/05/22 07:54 Total Bilirubin 0.7 mg/dL (0.15-1.2) 12/05/22 07:54 AST 22 U/L (0-40) 12/05/22 07:54 ALT 17 U/L (0-41) 12/05/22 07:54 Alkaline Phosphatase 88 U/L (40-130) 12/05/22 07:54 Troponin T Baseline 25 ng/L (0-15) H 12/05/22 07:54 Troponin T 120 Minute 25.17 ng/L (0-15) H 12/05/22 09:45 Delta Troponin T 0.17 ABS# (0-10) 12/05/22 09:45 Troponin T Hi Sens 6Hr 29.24 ng/L (0-15) H 12/05/22 13:43 Troponin T Hi Sens 6Hr Delta 4.24 ng/L (0-12) 12/05/22 13:43 C-Reactive Protein 145.6 mg/L (0.0-4.9) H 12/05/22 07:54 NT-Pro-B Natriuret Pep 6946 pg/mL (0-450) H 12/05/22 07:54 Total Protein 6.1 g/dL (6.6-8.7) L 12/05/22 07:54 Albumin 4.2 g/dL (3.5-5.2) 12/05/22 07:54 Globulin 1.9 g/dL (1.3-4.6) 12/05/22 07:54 Procalcitonin 0.08 ng/mL (0-0.5) 12/05/22 07:54 Coronavirus 229E (PCR) Not detected (NOT DETECT) 12/05/22 09:23 SARS-CoV-2 (PCR) Not detected (NOT DETECT) 12/05/22 09:23 Discharge Plan Discharge Patient Disposition: Placed in Observation Admit Provider: Kristal Cobos Clinical Impression: Acute exacerbation of CHF (congestive heart failure) Discharge Diet: Cardiac Discharge Activity: Resume usual activity and Increase activity as tolerated Coding Level of Care Code ED Athletic Agent for Cam Munoz
--- NOTE | 2022-12-05 08:50 | XRR_ITS ---
PROCEDURE INFORMATION: Exam: XR Chest Exam date and time: 12/05/2022 8:59 AM Age: 82 years old Clinical indication: Cough and shortness of breath; Prior surgery; Surgery type: Cabg; Additional info: Cough, SOB TECHNIQUE: Imaging protocol: Radiologic exam of the chest. Views: 1 view. COMPARISON: CR (CHEST, ) 12/01/2022 11:49 PM FINDINGS: Lungs: Low lung volumes. There is increased interstitial markings and haziness of the lungs, which in the setting of cardiomegaly is suggestive of pulmonary congestion. Pneumonia should be excluded clinically. Pleural spaces: Unremarkable. No pleural effusion. No pneumothorax. Heart/Mediastinum: Stable cardiomediastinal silhouette. The patient is status post CABG. Bones/joints: Median sternotomy changes seen. XR/XR chest 1V portable [id number] IMPRESSION: Imaging findings suggestive of pulmonary congestion. Pneumonia should be excluded clinically.
[2022-12-05 09:13] LABS: Blood Gas Allen Test Pos; Blood Gas Sample Type Arterial
[2022-12-05 09:15] LABS: ABG PCO2 56.8 mmHg (35-45); ABG PH Result 7.34 (7.35-7.45); Arterial Blood Gas Hematocrit 23.3 % (42-52); Base Excess ABG 3.8 mmol/L (-2.0-2.0); Blood Gas Operator Identificat CAK; Blood Gas Sample Site Radial, left; Carboxyhemoglobin 3.4 %THgb (0.4-20.1); HCO3 ABG 30.3 mmol/L (22-26); Methemoglobin 0.5 % (0.4-1.5); Oxygen Device NC; Total Hemoglobin 7.6 g/dL (14-18)
[2022-12-05 09:21] LABS: Basophils % 0.3 %; Eosinophils % 0.2 %; Hematocrit 26.5 % (42.0-52.0); Hemoglobin 8.5 g/dL (11.7-16.6); Lymphocytes % 8.3 %; Mean Corpuscular HGB Conc 32.1 g/dL (30.0-36.0); Mean Corpuscular Hemoglobin 31.5 pg (28.0-34.0); Mean Corpuscular Volume 98.1 fl (80-94); Mean Platelet Volume 9.7 fL (7.4-10.4); Monocytes # 1.2 10^3/uL (0.2-0.9); Monocytes % 10.4 %; Neutrophils # 9.36 10^3/uL (1.8-7.7); Neutrophils % 80.3 %; Nucleated Red Blood Cells % 0 %; Platelet Count 216 10^3/cmm (130-400); Red Cell Distribution Width 14.1 % (12.1-15.1); White Blood Count 11.7 10^3/uL (4.0-10.0)
[2022-12-05 09:23] LABS: Troponin(5th) Baseline 25 ng/L (0-15)
--- NOTE | 2022-12-05 09:26 | CT_ITS ---
WS: [id number] CT CHEST WITH INTRAVENOUS CONTRAST HISTORY: sob, cough, abnormal cxr TECHNIQUE: Contiguous 5 mm axial imaging performed on the thorax. Coronal and sagittal reformats are submitted. All CT scans at [facility] use at least one of these dose optimization techniques: automated exposure control; mA and/or kV adjustment per patient size (includes targeted exams where dose is matched to clinical indication); or iterative reconstruction. CONTRAST: Omnipaque 350; 100 mL IV. DLP: 344.92 mGy.cm COMPARISON: 12/05/2022 radiograph Breathing motion artifact. Lungs and central airway: Centrilobular emphysema. Mild diffuse interstitial thickening throughout vashti th lungs. No dense consolidations. Pleura: No effusion. Heart and pericardium: Mildly enlarged LEFT heart. Prior CABG. Mediastinum and frannie: No mediastinum or hilar adenopathy. Vessels: Atherosclerosis aorta. No aneurysm. Normal central pulmonary artery. Chest wall and lower neck: Prior median sternotomy. Mild dehiscence along the sternotomy site. Upper abdomen: Breathing motion artifact. Atherosclerosis suprarenal aorta. Prior cholecystectomy. Osseous structures: No destructive process. CT/CT chest w con* [id number] IMPRESSION: 1. Mild diffuse interstitial thickening. Differential includes mild pulmonary venous congestion and interstitial fibrosis. 2. Centrilobular emphysema. 3. Prior CABG. 4. No dense consolidation or pneumonia.
[2022-12-05] MEDS: albuterol 2.5 mg/3 mL Neb INHALATION (09:28)
[2022-12-05 09:29] LABS: NT Pro B Type Natriuretic Pept 6946 pg/mL (0-450); Procalcitonin 0.08 ng/mL (0-0.5)
--- NOTE | 2022-12-05 09:36 | ECG_ITS ---
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 Measurements Intervals [place] Rate: 73 P: 0 [place]: 0 QRS: -27 QRSD: 139 T: 84 QT: 442 QTc: 490 Interpretive Statements Sinus rhythm with a frequent supraventricular ectopic INTRAVENTRICULAR CONDUCTION DELAY 130+ ms QRS DURATION SEPTAL MYOCARDIAL INFARCTION , OF INDETERMINATE AGE 40+ ms Q WAVE IN V1/V2 Compared to ECG 12/02/2022 00:12:55 Intraventricular conduction delay now present Sinus rhythm no longer present Myocardial infarct finding still present Electronically Signed On 12-05-2022 21:44:13 HAZARDOUS WASTE TECHNICIAN by Arianna Cason M.D. [email or web address] Centresour [id number]
[2022-12-05 09:40] LABS: Alanine Aminotransferase 17 U/L (0-41); Albumin Level 4.2 g/dL (3.5-5.2); Alkaline Phosphatase 88 U/L (40-130); Anion Gap 13.6 (5-19); Aspartate Amino Transferase 22 U/L (0-40); Blood Urea Nitrogen 24 mg/dL (8-23); C Reactive Protein 145.6 mg/L (0.0-4.9); Carbon Dioxide 28 mmol/L (22-29); Chloride 97 mmol/L (98-107); Globulin 1.9 g/dL (1.3-4.6); Glucose 162 mg/dL (65-115); Osmolality Calculated 286 mOsm/kg (285-295); Potassium 4.6 mmol/L (3.5-5.1); Sodium 134 mmol/L (136-145); Total Bilirubin 0.7 mg/dL (0.15-1.2); Total Protein 6.1 g/dL (6.6-8.7)
[2022-12-05 09:52] LABS: Lactic Sepsis W/Reflex 0.9 mmol/L (0.5-2.2)
[2022-12-05] MEDS: iohexol 350 mg/mL 500 mL Btl (per mL) IV (09:57)
[2022-12-05 10:12] LABS: Troponin 5 2HR 25.17 ng/L (0-15)
[2022-12-05 10:16] LABS: Troponin 5 2HR Delta 0.17 ABS# (0-10)
[2022-12-05] MEDS: benzonatate 100 mg Capsule PO (10:24)
[2022-12-05] MEDS: FUROsemide 10 mg/mL SDV 2mL 20 MG IVP (11:05)
--- NOTE | 2022-12-05 11:17 | PC.PHAR ---
PT FILLS MEDS [facility]- MEDICATIONS VERIFIED BY [facility] L[facility], AND DAUGHTER WELL A MED LIST BROUGHT IN BY DAUGHTER
[2022-12-05 11:36] LABS: Adenovirus Not Detected (NOT DETECT); Chlamydia Pneumoniae Not Detected (NOT DETECT); Coronavirus 229E,HKU1,NL63,OC4 Not Detected (NOT DETECT); Human Metapneumovirus Not Detected (NOT DETECT); Human Rhinovirus/Enterovirus Not Detected (NOT DETECT); Influenza A Not Detected (NOT DETECT); Influenza A H1 Not Detected (NOT DETECT); Influenza A H1-2009 Not Detected (NOT DETECT); Influenza A H3 Not Detected (NOT DETECT); Influenza B Not Detected (NOT DETECT); Mycoplasma Pneumoniae Not Detected (NOT DETECT); Parainfluenza Virus Type 1 Not Detected (NOT DETECT); Parainfluenza Virus Type 2 Not Detected (NOT DETECT); Parainfluenza Virus Type 3 Not Detected (NOT DETECT); Parainfluenza Virus Type 4 Not Detected (NOT DETECT); Respiratory Syncytial Virus A Not Detected (NOT DETECT); Respiratory Syncytial Virus B Not Detected (NOT DETECT); SARS-COV-2 Not Detected (NOT DETECT)
[2022-12-05] MEDS: LORazepam 0.5 mg Tablet PO (11:43)
--- NOTE | 2022-12-05 13:11 | PC.NURSE ---
1305 Patient recieved from ER. patient placed on bipap, patient c/o cant breath and requested to be placed on bipap.
[2022-12-05 14:10] LABS: Troponin 5 6HR 29.24 ng/L (0-15)
[2022-12-05 14:18] LABS: Troponin 5 6HR Delta 4.24 ng/L (0-12)
--- NOTE | 2022-12-05 14:50 | ECG_ITS ---
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 Measurements Intervals [place] Rate: 98 P: -69 VT: 134 QRS: -35 QRSD: 142 T: 87 QT: 392 QTc: 501 Interpretive Statements Multifocal atrial rhythm LEFT AXIS DEVIATION [QRS AXIS < -30] INTRAVENTRICULAR CONDUCTION DELAY [130+ ms QRS DURATION] Compared to ECG 12/05/2022 09:36:06 Junctional rhythm now present Left-axis deviation now present Atrial fibrillation no longer present Myocardial infarct finding no longer present Electronically Signed On 12-05-2022 21:58:32 CENTER REP by Arianna Cason M.D. [email or web address] [email or web address] behavioral health [email or web address] [id number]
--- NOTE | 2022-12-05 15:12 | P.HP_ITS ---
Providers/Chief Complaint Admitting Physician: Kristal Cobos MD Chief Complaint: DIFFICULTY BREATHING/ WHEEZING History of Present Illness History is somewhat hard to obtain as patient is extremely hard of hearing. 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 He has recently been started on Lasix for worsening shortness of breath. Patient presents to the emergency room complaining of left-sided chest pain. He rates the pain as 4-5 out of 10, located along the left thoracic wall, nonradiating, no apparent exacerbating or relieving factors. He states he has been having this chest pain on and off for the last month or so. No apparent co rrelation with exertion. He is also noted to be tachypneic and short of breath in the ER. Respiratory rate of 25/min. CT of the chest that was performed today showed bilateral pulmonary vascular congestion. This is not relieved after receiving 20 mg of IV Lasix in the emergency room. EKG today does not shows left axis deviation with multiple VPCs. No acute ST-T wave changes are noted. Troponin series is without significant delta at 2 and 6 hours. Patient does not feel he is more short of breath than usual. He apparently has a BiPAP at home as he points to the machine placed next to him but states cannot tolerate it. His ABG showed hypercapnic respiratory failure with pH 7.34/56 point 8/102/30 0.3. Patient denies any past history of COPD, however his lungs have shown hyperinflation consistently and review of home medication shows that patient is on DuoNeb inhalation at home. He denies any recent fever or chills. He does have a cough but does not think this is worsened over baseline. No sick contacts. Review of Systems General: Reports: 10 or more systems reviewed and unremarkable except in HPI and below Const: Denies: fever(s), chills or body aches Eyes: Denies: change in vision, blurry vision or photophobia ENMT: Reports: hoarseness; Denies: throat pain, enlarged tonsils, odynophagia or nasal congestion Card: Denies: chest pain, palpitations, irregular heart rhythm, edema, swelling of feet/ankles, lightheadedness, pre-syncope, dyspnea on exertion or orthopnea Resp: Denies: dyspnea, productive cough, non-productive cough, wheezing, stridor, pain on inspiration, change in phlegm color, hemoptysis or chest congestion GI: Denies: abdominal pain, nausea, vomiting, hematemesis, coffee ground emesis, dysphagia, heartburn, diarrhea, constipation, GI cramping, change in stool character, hematochezia or melena : Denies: flank pain, dysuria, urinary frequency, urinary urgency, urinary hesitancy or hematuria Musc: Denies: neck pain, back pain, extremity pain, joint swelling, joint warmth or deformity Neuro: Denies: headache(s), numbness in extremities, weakness in extremities, sensory changes, difficulty walking, frequent falls, dizziness, vertigo, behavioral changes, Slurred speech present or seizure-like activity Psych: Denies: anxiety, depression, suicidal ideation or homicidal ideation Endo: Denies: polyuria, polydipsia, tired all the time, cold intolerance or hot flashes Doc/Lymph: Denies: easy bruising or easy bleeding Medications/Allergies Home Medications Medication Instructions Recorded Confirmed Last Taken Type clonazepam 0.25 mg disintegrating 0.25 mg PO DAILY PRN Anxiety 11/20/22 12/05/22 Unknown History tablet aspirin 81 mg tablet,delayed 81 mg PO DAILY 12/05/22 12/05/22 12/04/22 History release atorvastatin 40 mg tablet 40 mg PO QPM 12/05/22 12/05/22 12/04/22 History bupropion HCl 100 mg tablet 100 mg PO TID 12/05/22 12/05/22 12/04/22 History carvedilol 6.25 mg tablet 3.125 mg PO BID 12/05/22 12/05/22 12/04/22 History clopidogrel 75 mg tablet 75 mg PO DAILY 12/05/22 12/05/22 12/04/22 History diphenoxylate-atropine 2.5 1 tab PO QID PRN Diarrhea 12/05/22 12/05/22 Unknown History mg-0.025 mg tablet ipratropium 0.5 mg-albuterol 3 mg 3 ml inhalation Q4H PRN Shortness 12/05/22 12/05/22 Unknown History (2.5 mg base)/3 mL nebulization Of Breath Or Wheezing soln isosorbide mononitrate 60 mg 60 mg PO DAILY 12/05/22 12/05/22 12/04/22 History tablet,extended release 24 hr lisinopril 5 mg tablet 2.5 mg PO DAILY PRN Blood Pressure 12/05/22 12/05/22 Unknown History melatonin 3 mg tablet 3 mg PO BEDTIME 12/05/22 12/05/22 12/04/22 History nitroglycerin 0.4 mg sublingual 0.4 mg sublingual Q5M PRN Chest 12/05/22 12/05/22 Unknown History tablet (Nitrostat) Pain pantoprazole 40 mg tablet,delayed 40 mg PO DAILY 12/05/22 12/05/22 12/04/22 History release ranolazine 1,000 mg 1,000 mg PO BID 12/05/22 12/05/22 12/04/22 History tablet,extended release,12 hr ropinirole 0.5 mg tablet 0.5 mg PO TID 12/05/22 12/05/22 12/04/22 History tamsulosin 0.4 mg capsule 0.8 mg PO QPM 12/05/22 12/05/22 12/04/22 History Allergies Allergy/AdvReac Type Severity Reaction Status Date / Time codeine Allergy ALGY-Rash Verified 12/05/22 11:17 morphine Allergy ALGY-Rash Verified 12/05/22 11:17 PFSH Acute PFSH: Medical History (Updated 12/05/22 @ 15:22 by Kristal Cobos MD) CAD (coronary artery disease) Hypertension Surgical History (Updated 12/05/22 @ 15:19 by Kristal Cobos MD) Hx of CABG No significant past surgical history S/P heart valve repair Vitals/I&O/Wt Last Vital Signs Temp 97.5 F L 12/05/22 08:40 Pulse 93 12/05/22 13:10 Resp 21 H 12/05/22 13:10 BP 157/67 12/05/22 13:10 Pulse Ox 97 12/05/22 13:10 O2 Del Method 12/05/22 13:10 O2 Flow Rate 3 12/05/22 09:15 FiO2 30 12/05/22 10:46 Physical Exam Narrative: General: No acute distress, AO x3 HEENT: PERRLA, pupils bilaterally equal and reactive, pallors not present Chest: Rales to auscultation diffusely all areas CVS: S1-S2 regular, no murmurs, no tachycardia, no gallops, no rubs Abdomen: Soft, nontender, no organomegaly, bowel sounds present Neuro: No focal deficits, no facial deformity, AO x3, power 5/5 in all limbs Extremities: No edema clubbing or cyanosis Data 12/05/22 07:54 12/05/22 07:54 Other Labs: Radiology Impressions Chest X-Ray 12/05/22 08:50 IMPRESSION: Imaging findings suggestive of pulmonary congestion. Pneumonia should be excluded clinically. Chest CT 12/05/22 09:26 IMPRESSION: 1. Mild diffuse interstitial thickening. Differential includes mild pulmonary venous congestion and interstitial fibrosis. 2. Centrilobular emphysema. 3. Prior CABG. 4. No dense consolidation or pneumonia. Laboratory Results WBC 11.7 10^3/uL (4.0-10.0) H 12/05/22 07:54 RBC 2.70 10^6/uL (4.1-5.3) L 12/05/22 07:54 Hgb 8.5 g/dL (11.7-16.6) L 12/05/22 07:54 Hct 26.5 % (42.0-52.0) L 12/05/22 07:54 MCV 98.1 fl (80-94) H 12/05/22 07:54 MCH 31.5 pg (28.0-34.0) 12/05/22 07:54 MCHC 32.1 g/dL (30.0-36.0) 12/05/22 07:54 RDW 14.1 % (12.1-15.1) 12/05/22 07:54 Plt Count 216 10^3/cmm (130-400) 12/05/22 07:54 MPV 9.7 fL (7.4-10.4) 12/05/22 07:54 Neut % (Auto) 80.3 % 12/05/22 07:54 Lymph % (Auto) 8.3 % 12/05/22 07:54 [place] % (Auto) 10.4 % 12/05/22 07:54 Eos % (Auto) 0.2 % 12/05/22 07:54 Baso % (Auto) 0.3 % 12/05/22 07:54 Neut # (Auto) 9.36 10^3/uL (1.8-7.7) H 12/05/22 07:54 Lymph # (Auto) 1.0 10^3/uL (0.8-4.8) 12/05/22 07:54 [place] # (Auto) 1.2 10^3/uL (0.2-0.9) H 12/05/22 07:54 Eos # (Auto) 0.0 10^3/uL (0.0-0.8) 12/05/22 07:54 Baso # (Auto) 0.0 10^3/uL (0.0-0.1) 12/05/22 07:54 Nucleated RBC % (auto) 0 % 12/05/22 07:54 Nucleated RBCs # 0.0 /100WBC 12/05/22 07:54 Specimen Type Arterial 12/05/22 09:02 Sample Site Radial, left 12/05/22 09:02 ABG pH 7.34 (7.35-7.45) L 12/05/22 09:02 ABG pCO2 56.8 mmHg (35-45) H 12/05/22 09:02 ABG pO2 102.0 mmHg (80.0-100.0) H 12/05/22 09:02 ABG HCO3 30.3 mmol/L (22-26) H 12/05/22 09:02 ABG Base Excess 3.8 mmol/L (-2.0-2.0) H 12/05/22 09:02 Ankur Test Pos 12/05/22 09:02 Hematocrit 23.3 % (42-52) L 12/05/22 09:02 Hgb O2 Saturation 95.0 % (95-100) 12/05/22 09:02 Carboxyhemoglobin 3.4 %THgb (0.4-20.1) 12/05/22 09:02 Methemoglobin 0.5 % (0.4-1.5) 12/05/22 09:02 Total Hemoglobin 7.6 g/dL (14-18) L 12/05/22 09:02 O2 Delivery Device Nc 12/05/22 09:02 O2 Liters/Min 3.0 % 12/05/22 09:02 Yarn Inspector ID Cak 12/05/22 09:02 Sodium 134 mmol/L (136-145) L 12/05/22 07:54 Potassium 4.6 mmol/L (3.5-5.1) 12/05/22 07:54 Chloride 97 mmol/L (98-107) L 12/05/22 07:54 Carbon Dioxide 28 mmol/L (22-29) 12/05/22 07:54 Anion Gap 13.6 (5-19) 12/05/22 07:54 BUN 24 mg/dL (8-23) H 12/05/22 07:54 Creatinine 0.7 mg/dL (0.7-1.2) 12/05/22 07:54 GFR Calculation Not Reportable 12/05/22 07:54 Glucose 162 mg/dL (65-115) H 12/05/22 07:54 Calculated Osmolality 286 mOsm/kg (285-295) 12/05/22 07:54 Lactic Acid 0.9 mmol/L (0.5-2.2) 12/05/22 09:23 Calcium 9.0 mg/dL (8.5-10.5) 12/05/22 07:54 Total Bilirubin 0.7 mg/dL (0.15-1.2) 12/05/22 07:54 AST 22 U/L (0-40) 12/05/22 07:54 ALT 17 U/L (0-41) 12/05/22 07:54 Alkaline Phosphatase 88 U/L (40-130) 12/05/22 07:54 Troponin T Baseline 25 ng/L (0-15) H 12/05/22 07:54 Troponin T 120 Minute 25.17 ng/L (0-15) H 12/05/22 09:45 Delta Troponin T 0.17 ABS# (0-10) 12/05/22 09:45 Troponin T Hi Sens 6Hr 29.24 ng/L (0-15) H 12/05/22 13:43 Troponin T Hi Sens 6Hr Delta 4.24 ng/L (0-12) 12/05/22 13:43 C-Reactive Protein 145.6 mg/L (0.0-4.9) H 12/05/22 07:54 NT-Pro-B Natriuret Pep 6946 pg/mL (0-450) H 12/05/22 07:54 Total Protein 6.1 g/dL (6.6-8.7) L 12/05/22 07:54 Albumin 4.2 g/dL (3.5-5.2) 12/05/22 07:54 Globulin 1.9 g/dL (1.3-4.6) 12/05/22 07:54 Procalcitonin 0.08 ng/mL (0-0.5) 12/05/22 07:54 Coronavirus 229E (PCR) Not detected (NOT DETECT) 12/05/22 09:23 SARS-CoV-2 (PCR) Not detected (NOT DETECT) 12/05/22 09:23 Micro: Microbiology 12/05/22 09:23 Blood Culture - Preliminary Blood SPECIMEN COLLECTED 12/05/22 09:25 Blood Culture - Preliminary Blood SPECIMEN COLLECTED A&P Assessment and plan (1) Acute exacerbation of CHF (congestive heart failure): (2) Chest pain: (3) Hypercapnic respiratory failure: Plan 82-year-old male with a past medical history of coronary artery disease, CABG, possibly COPD presenting today with chief complaints of chest pain. Low suspicion for ACS currently given no acute ST-T wave changes on EKG and troponin without significant delta at 2 and 6-hour. Troponin is mildly elevated in the 20s range which may be related to CHF. Clinically patient appears to be having congestive heart failure as evidenced by bilateral pulmonary vascular congestion on CT and elevated BNP, Rales on exam. Patient states that he was recently started on Lasix though I do not have the details of this. We will start him on Lasix 40 mg IV every 12 hours while closely monitoring his urine output and kidney function Nitropaste 0.5 inch every 6 hours, may be titrated based on response to chest pain. Place Diana catheter for accurate urine output measurement Monitor him on telemetry. It is not known to me at this time whether this is acute or chronic or systolic or diastolic heart failure. We will obtain echocardiogram to assess cardiac function, assess for any wall motion abnormalities. Check D-dimer to screen for possible PE ABG with acute hypercapnic respiratory failure, patient denies a past history of COPD, however reviewing his home medication list and past x-rays showing hyperinflation suspect that he may have underlying COPD. We will place him on DuoNeb inhalation every 6 hours, budesonide every 12 hours. Holding off on steroids for now Patient was placed on BiPAP in the emergency room, however he tolerated this poorly and is now currently on 4 L/min supplemental O2. Low suspicion for pneumonia no gross consolidation noted, no fever or leukocytosis. Procalcitonin negative. Further orders based on results of echocardiogram, response to Lasix, results of pending blood work DVT prophylaxis: Lovenox 40 mg daily Attestations Medical Necessity Statement*: Anticipate greater than 2 midnight admission for CHF exacerbation, need for IV diuresis, hypercapnic respiratory failure needing BiPAP Coding Level of Care Code Acute Code for Chg Fwd High MDM includes number and complexity of problems actively addressed during encounter, amount and/or complexity of data reviewed/ordered and described risk of complication, morbidity or mortality of management as documented Diagnoses Acute exacerbation of CHF (congestive heart failure) I50.9 Chest pain R07.9 Hypercapnic respiratory failure J96.92
[2022-12-05] MEDS: ipratropium-albuterol 3 mL Neb INHALATION (15:25)
[2022-12-05 15:46] LABS: D Dimer 11.86 ug/mIFEU (0-0.59)
[2022-12-05] MEDS: nitroglycerin 1 gm/inch oint Pkt 0.5 INCH TOPICAL ×2 (16:23→21:33)
[2022-12-05] MEDS: enoxaparin 40 mg/0.4 mL Syringe SUBCUT (16:24)
[2022-12-05] MEDS: ranolazine (12HR) 500 mg Tablet 1000 MG PO (18:17)
[2022-12-05] MEDS: tamsulosin 0.4 mg Capsule 0.8 MG PO (18:17)
[2022-12-05] MEDS: atorvastatin 40 mg Tablet PO (18:17)
[2022-12-05] MEDS: carvedilol 3.125 mg Tablet PO (18:18)
--- NOTE | 2022-12-05 19:45 | ECG_ITS ---
[facility] Test Date: 2022-12-05 Pat Name: Juan Gann Department: Room: 278 Gender: Male Director Of Recruitment And Admissions: : 1940 Requested By: Kristal Cobos Order Number: [id number] Jay Jay MD: Arianna Cason M.D. Measurements Intervals [place] Rate: 98 P: 0 [place]: 0 QRS: -24 QRSD: 137 T: 83 QT: 378 QTc: 484 Interpretive Statements ATRIAL FIBRILLATION BORDERLINE LEFT AXIS DEVIATION [QRS AXIS < -20] INTRAVENTRICULAR CONDUCTION DELAY [130+ ms QRS DURATION] Compared to ECG 12/05/2022 12:53:11 Junctional rhythm no longer present Electronically Signed On 12-05-2022 21:47:49 MACHINIST MECHANIC by Arianna Cason M.D. [id number]
[2022-12-05] MEDS: FUROsemide 10 mg/mL SDV 4mL 40 MG IVP (20:11)
[2022-12-05] MEDS: hyDRALAzine 20 mg/mL INJ 1 mL 10 MG IVP (20:25)
[2022-12-05 20:42] LABS: ABG PCO2 54.3 mmHg (35-45); ABG PH Result 7.36 (7.35-7.45); Arterial Blood Gas Hematocrit 32.6 % (42-52); Base Excess ABG 4.1 mmol/L (-2.0-2.0); Blood Gas Allen Test Pos; Blood Gas Sample Site Radial, left; Blood Gas Sample Type Arterial; Carboxyhemoglobin 1.9 %THgb (0.4-20.1); HCO3 ABG 30.5 mmol/L (22-26); HGB O2 Sat 97.2 % (95-100); Ionized Calcium Level - ABG 1.3 mmol/L (1.1-1.4); Methemoglobin 0.8 % (0.4-1.5); Oxygen Device NC; Oxygen Saturation ABG 99.8; Potassium Level - ABG 4.1 mmol/L (3.5-5.0); Total Hemoglobin 10.6 g/dL (14-18)
[2022-12-05 21:09] LABS: Troponin(5th) Baseline 41 ng/L (0-15)
--- NOTE | 2022-12-05 21:18 | PC.NURSE ---
Called and spoke with regarding patient with complaints of chest pain has morphine ordered but has history of morphine allergy. Patient also has congested cough. Dr Rivers ordered one time dose of dilaudid IVP and cough syrup.
[2022-12-05] MEDS: guaiFENesin-dextromethorphan UDC 10 mL PO (21:26)
[2022-12-05] MEDS: HYDROmorphone 1 mg/mL INJ 1 mL 0.5 MG IVP (21:26)
--- NOTE | 2022-12-05 21:45 | PC.NURSE ---
Clarified with patient had received dose of 40mg Lovenox given at 16:24, had order for lovenox 70mg Q 12 which has not been given. Dr Coombs wants dose of Lovenox 70mg given now.
--- NOTE | 2022-12-05 21:59 | ECG_ITS ---
[facility] Test Date: 2022-12-05 Pat Name: Juan Gann Department: Room: 112 Gender: Male Radio Sales Account Executive: : 1940 Requested By: Murray Clemons Order Number: [id number] Jay Jay MD: Beni Yadav M.D. Measurements Intervals [place] Rate: 84 P: 0 [place]: 0 QRS: 38 QRSD: 133 T: 24 QT: 406 QTc: 481 Interpretive Statements ATRIAL FIBRILLATION WITH ABERRANT CONDUCTION OR VENTRICULAR PREMATURE COMPLEXES INTRAVENTRICULAR CONDUCTION DELAY [130+ ms QRS DURATION] Compared to ECG 12/05/2022 19:49:12 Ventricular premature complex(es) now present Aberrant conduction of supraventricular beat(s) now present Electronically Signed On 12-06-2022 16:10:10 CAMPAIGN COORDINATOR by Beni Yadav M.D. [id number]
[2022-12-05] MEDS: ropinirole 0.25 mg Tablet 0.5 MG PO (22:32)
[2022-12-05] MEDS: enoxaparin 100 mg/mL Syringe 70 MG SUBCUT (22:32)
[2022-12-05 22:45] LABS: Troponin 5 2HR 42.62 ng/L (0-15)
[2022-12-05] MEDS: CLONazepam 0.5 mg Tablet 0.25 MG PO (22:46)
[2022-12-05 22:53] LABS: Troponin 5 2HR Delta 1.62 ABS# (0-10)
[2022-12-06] VITALS (51 sets, daily range): BP systolic 87–120; BP diastolic 53–68; PULSE 63–102; RESP 14–42; TEMP 36.4–36.7; O2SAT 93–99
--- NOTE | 2022-12-06 02:11 | ECG_ITS ---
[facility] Test Date: 2022-12-06 Pat Name: Juan Gann Department: Room: 112 Gender: Male Caramel Maker: : 1940 Requested By: Murray Clemons Order Number: [id number] Jay Jay MD: Beni Yadav M.D. Measurements Intervals [place] Rate: 100 P: 0 [place]: 0 QRS: 23 QRSD: 134 T: 92 QT: 394 QTc: 509 Interpretive Statements ATRIAL FIBRILLATION WITH RAPID VENTRICULAR RESPONSE WITH ABERRANT CONDUCTION OR VENTRICULAR PREMATURE COMPLEXES INTRAVENTRICULAR CONDUCTION DELAY [130+ ms QRS DURATION] ANTEROSEPTAL MYOCARDIAL INFARCTION , OF INDETERMINATE AGE [40+ ms Q WAVE IN V1-V4] Compared to ECG 12/05/2022 22:01:09 Myocardial infarct finding now present Electronically Signed On 12-06-2022 16:09:48 FIXED INCOME TRADING VICE PRESIDENT by Beni Yadav M.D. [id number]
[2022-12-06] MEDS: ipratropium-albuterol 3 mL Neb INHALATION ×4 (02:49→20:26)
--- NOTE | 2022-12-06 02:53 | PC.NURSE ---
Patient complained of chest pain; He was diaphoretic; blood pressure 178/91 - HR 118 - RR 26 - O2 sat 94% on 4L/NC. EKG done and result called to Dr. Clemons. Orders received.
--- NOTE | 2022-12-06 02:59 | PC.NURSE ---
Report called to Lily at 2040 and patient transferred to C[facility] room 112 via bed and with oxygen on at 5L NC. with Verónica and traci. Dr. Clemons was notified patient not receiving morphine due to patient's sated allergy to morphine and daughter's report of allergy to morphine.
[2022-12-06 03:18] LABS: Basophils % 0.1 %; Hematocrit 26.2 % (42.0-52.0); Hemoglobin 8.5 g/dL (11.7-16.6); Lymphocytes # 0.3 10^3/uL (0.8-4.8); Lymphocytes % 3.9 %; Mean Corpuscular HGB Conc 32.4 g/dL (30.0-36.0); Mean Corpuscular Hemoglobin 31.1 pg (28.0-34.0); Mean Platelet Volume 9.7 fL (7.4-10.4); Monocytes # 0.5 10^3/uL (0.2-0.9); Monocytes % 5.8 %; Neutrophils # 7.69 10^3/uL (1.8-7.7); Nucleated Red Blood Cells % 0 %; Platelet Count 210 10^3/cmm (130-400); Red Blood Count 2.73 10^6/uL (4.1-5.3); Red Cell Distribution Width 13.5 % (12.1-15.1); White Blood Count 8.6 10^3/uL (4.0-10.0)
[2022-12-06 03:55] LABS: Alanine Aminotransferase 18 U/L (0-41); Albumin Level 3.6 g/dL (3.5-5.2); Alkaline Phosphatase 83 U/L (40-130); Anion Gap 14.2 (5-19); Aspartate Amino Transferase 19 U/L (0-40); Blood Urea Nitrogen 24 mg/dL (8-23); Carbon Dioxide 28 mmol/L (22-29); Chloride 98 mmol/L (98-107); Globulin 2.1 g/dL (1.3-4.6); Glucose 152 mg/dL (65-115); Osmolality Calculated 289 mOsm/kg (285-295); Potassium 4.2 mmol/L (3.5-5.1); Sodium 136 mmol/L (136-145); Total Bilirubin 0.5 mg/dL (0.15-1.2); Total Protein 5.7 g/dL (6.6-8.7)
[2022-12-06] MEDS: nitroglycerin 1 gm/inch oint Pkt 0.5 INCH TOPICAL ×2 (03:59→09:32)
[2022-12-06] MEDS: guaiFENesin-dextromethorphan UDC 10 mL PO ×2 (06:20→19:42)
[2022-12-06] MEDS: budesonide 0.5 mg/2 mL Neb INHALATION ×2 (08:05→20:26)
[2022-12-06] MEDS: iohexol 350 mg/mL 500 mL Btl (per mL) IV (09:20)
[2022-12-06] MEDS: enoxaparin 100 mg/mL Syringe 70 MG SUBCUT ×2 (09:31→19:34)
[2022-12-06] MEDS: aspirin 81 mg EC Tablet PO (09:32)
[2022-12-06] MEDS: carvedilol 3.125 mg Tablet PO ×2 (09:32→18:13)
[2022-12-06] MEDS: ranolazine (12HR) 500 mg Tablet 1000 MG PO ×2 (09:32→18:13)
[2022-12-06] MEDS: pantoprazole DR 40 mg Tablet PO (09:32)
[2022-12-06] MEDS: ropinirole 0.25 mg Tablet 0.5 MG PO ×3 (09:32→19:34)
[2022-12-06] MEDS: clopidogrel 75 mg Tablet PO (09:32)
[2022-12-06] MEDS: FUROsemide 10 mg/mL SDV 4mL 40 MG IVP ×2 (09:32→19:33)
--- NOTE | 2022-12-06 10:00 | CTR_ITS ---
PROCEDURE INFORMATION: Exam: CTA Chest With Contrast Exam date and time: 12/06/2022 9:14 AM Age: 82 years old Clinical indication: Pain; Chest pressure; Additional info: Chest pain, elevated dimer TECHNIQUE: Imaging protocol: Computed tomographic angiography of the chest with contrast. 3D rendering (Not supervised by radiologist): MIP and/or 3D reconstructed images were created by the technologist. Radiation optimization: All CT scans at this facility use at least one of these dose optimization techniques: automated exposure control; mA and/or kV adjustment per patient size (includes targeted exams where dose is matched to clinical indication); or iterative reconstruction. Contrast material: OMNI 350; Contrast volume: 100 ml; Contrast route: INTRAVENOUS (IV); REPORTING DATA: Count of CT and Cardiac NM exams in prior 12 months: This patient has received 2 known CTs and 0 known cardiac nuclear medicine studies in the 12 months prior to the current study. COMPARISON: CT chest w con* [id number] 12/05/2022 9:55 AM RADIATION DOSE METRICS: Total DLP (mGy-cm): 390.99 FINDINGS: Pulmonary arteries: No pulmonary embolism identified. Aorta: The aorta is normal in caliber. Lungs: Emphysematous changes noted. Minimal peripheral pulmonary scarring noted. Pleural spaces: No pneumothorax. No pleural effusion. Heart: The heart is within normal limits for size. No pericardial effusion is seen. Coronary arteries: Coronary calcifications noted. Mediastinal space: Postsurgical changes in the mediastinum. Lymph nodes: The visualized supraclavicular region appears normal. No mediastinal or hilar adenopathy is identified. Gallbladder and bile ducts: Concern for gallstone measuring up to 11 mm in the partially visualized common bile duct (axial series 6, image 569), similar to prior exam. Questionable additional 4 mm stone again noted in the distal common bile duct (axial series 6, image 581). Intra and extrahepatic biliary dilatation noted. Adrenal glands: 1.9 cm nodule in the right adrenal gland measuring 6 Hounsfield units likely consistent with benign adrenal adenoma. Bones/joints: Median sternotomy wires noted. Chronic defect in the sternum post sternotomy. Superior endplate compression fracture at T12 with a proximally 25% height loss now measuring up to approximately 22 mm anteriorly versus recent prior 27 mm. Possible fracture extension through the posterior vertebral body with trace retropulsion into the spinal canal with no stenosis. Soft tissues: Unremarkable. CT/CT angio chest PE protcl [id number] IMPRESSION: 1. No pulmonary embolism identified. 2. Compression fracture at T12 with interval mild height loss. 3. Findings concerning for choledocholithiasis with intra and extrahepatic biliary dilatation. Recommend follow-up MRCP versus ERCP. COMMENTS: Consistent with the [employer]'s Incidental Findings Committee white paper (J Am Hansa Radiol 2017): Any incidental adrenal lesion less than 1 cm is likely benign. No follow-up imaging is recommended for these lesions per consensus recommendations based on imaging criteria. Further lab evaluation could be pursued if warranted based on clinical findings.
--- NOTE | 2022-12-06 10:58 | PM.PN ---
Subjective Subjective: Patient was moved from [facility] to [facility] overnight due to high blood pressure, increased diaphoresis and shortness of breath. He remained on BiPAP overnight. Much more comfortable after being given IV hydralazine and control of blood pressure. D-dimer returned elevated at 11 for which patient underwent CTA negative for PE. Incidentally noted 11 mm gallstone in the partially visualized CBD with intra and extrahepatic biliary dilatation. Net negative 800 cc since admission Medications: Reviewed: Yes Vitals/I&O/Wt Last Vital Signs Temp 98.0 F 12/06/22 08:30 Pulse 79 12/06/22 08:30 Resp 27 H 12/06/22 08:30 BP 118/65 12/06/22 08:30 Pulse Ox 94 12/06/22 08:30 O2 Del Method 12/06/22 08:00 O2 Flow Rate 5 12/05/22 20:35 FiO2 30 12/06/22 08:00 12/05/22 12/06/22 12/06/22 22:59 06:59 14:59 Intake Total 120 / 120 0 / 120 Output Total 1000 / 1000 Balance 120 / 120 -1000 / -880 Weight last 48 hrs Weight 68.719 kg Weight 79.923 kg Weight 69.4 kg Physical Exam Narrative: General: No acute distress, AO x3 HEENT: PERRLA, pupils bilaterally equal and reactive, pallors not present Chest: Normal vesicular breath sounds, no added sounds, equal good air entry bilaterally CVS: S1-S2 regular, no murmurs, no tachycardia, no gallops, no rubs Abdomen: Soft, nontender, no organomegaly, bowel sounds present Neuro: No focal deficits, no facial deformity, AO x3, power 5/5 in all limbs Urinary Catheter Management: Diana: Cath Placed During This Visit: yes Reason for Continuing Indwelling Catheter: Acute Urinary Retention or Obstruction Urinary Catheter Date of Insertion: 12/05/22 Urinary Catheter Time of Insertion: 15:50 Data 12/06/22 03:04 12/06/22 03:04 Micro: Microbiology 12/05/22 09:25 Blood Culture - Preliminary Blood NEGATIVE TO DATE 12/05/22 09:23 Blood Culture - Preliminary Blood NEGATIVE TO DATE A&P Assessment and plan (1) Acute exacerbation of CHF (congestive heart failure): (2) Chest pain: (3) Hypercapnic respiratory failure: Plan 82-year-old male with a past medical history of coronary artery disease, CABG, possibly COPD presenting with chief complaints of chest pain. Low suspicion for ACS currently given no acute ST-T wave changes on EKG and troponin without significant delta at 2 and 6-hour. Troponin is mildly elevated in the 20s range which may be related to CHF. Clinically patient appears to be having congestive heart failure as evidenced by bilateral pulmonary vascular congestion on CT and elevated BNP, Rales on exam.. Continue Lasix 40 mg IV every 12 hours while closely monitoring his urine output and kidney function Resume indur Tolerated Bipap overnight CTA negative for PE , D dimer 11 Echo pending Monitor him on telemetry. ABG with acute hypercapnic respiratory failure, patient denies a past history of COPD, however reviewing his home medication list and past x-rays showing hyperinflation suspect that he may have underlying COPD. We will place him on DuoNeb inhalation every 6 hours, budesonide every 12 hours. Holding off on steroids for now He tolerated BIpap pvernight Low suspicion for pneumonia no gross consolidation noted, no fever or leukocytosis. Procalcitonin negative. Incidentally noted t12 compression fracture and biliary dilatation with CBD stone which may be contributing to his pain. ALP and T. bili not elevated, doubt that this would be an obstructing calculus , however a passing stone may be contributing to biliary colic. Will obtain MRCP to further assess DVT prophylaxis: Lovenox 40 mg daily Attestations Medical Necessity Statement*: continued admission for CHF, iv diuersis, pending echo Coding Level of Care Code Acute Code for [facility] Fwd Diagnoses Acute exacerbation of CHF (congestive heart failure) I50.9 Chest pain R07.9 Hypercapnic respiratory failure J96.92
--- NOTE | 2022-12-06 11:01 | MRR_ITS ---
PROCEDURE INFORMATION: Exam: MR Abdomen Without Contrast Exam date and time: 12/06/2022 12:56 PM Age: 82 years old Clinical indication: Abnormal findings; Abnormal radiologic finding of the abdomen; Radiologic exam and body structure: Cta; Additional info: Cbd stone and biliary dilatation noted on cta chest, cbd stone and biliary dilatation noted on cta chest- TECHNIQUE: Imaging protocol: Magnetic resonance imaging of the abdomen without contrast. COMPARISON: CT chest w con* [id number] 12/05/2022 9:55 AM FINDINGS: Liver: No mass. Gallbladder and bile ducts: There is a 9.6 x 9.8 mm calculus in the proximal common bile duct. A 3.4 mm calculus is present in the distal common bile duct at the level of the pancreatic head. Common bile duct is dilated measuring 15 mm. There is intrahepatic ductal dilatation. The gallbladder has been surgically removed. Pancreas: Unremarkable. No ductal dilation. Spleen: Unremarkable. No splenomegaly. Adrenal glands: Unremarkable. No mass. Kidneys and ureters: Unremarkable. No solid mass. No hydronephrosis. Stomach and bowel: Visualized stomach and intestines are unremarkable. Intraperitoneal space: No free fluid. Vasculature: No abdominal aortic aneurysm. Bones/joints: Unremarkable. Soft tissues: Unremarkable. MR/MR MRCP [id number] IMPRESSION: Choledocholithiasis with intrahepatic and extrahepatic ductal dilatation as described above.
[2022-12-06] MEDS: isosorbide mononitrate ER 60 mg Tablet PO (12:07)
[2022-12-06] MEDS: HYDROmorphone 1 mg/mL INJ 1 mL 0.5 MG IVP (12:11)
[2022-12-06] MEDS: CLONazepam 0.5 mg Tablet 0.25 MG PO ×2 (12:12→20:46)
--- NOTE | 2022-12-06 14:23 | USCV_ITS ---
Juan Gann Age: 82 Gender: M : 1940 Exam Date: 12/06/2022 14:11 Ordering Phys: Kristal Cobos MD Technologist: KENNETH [place] [facility] [place]: new chf BP: / HR: 88 Rhythm: Sinus Technical Quality: Adequate MEASUREMENTS (Male / Female) Normal Values 2D ECHO LV Diastolic Diameter PLAX 5.8 cm 4.2 - 5.9 / 3.9 - 5.3 cm LV Systolic Diameter PLAX 4.4 cm IVS Diastolic Thickness 1.0 cm 0.6 - 1.0 / 0.6 - 0.9 cm IVS Systolic Thickness 1.2 cm LVPW Diastolic Thickness 0.9 cm 0.6 - 1.0 / 0.6 - 0.9 cm LVPW Systolic Thickness 1.3 cm LVOT Diameter 2.2 cm LV Ejection Fraction 2D Teich 39.4 % LV Ejection Fraction MOD 2C 46.7 % LV Ejection Fraction 2C AL 47.8 % LA Diameter 5.1 cm M-MODE Aortic Annulus Diameter 3.6 cm LA Ao Ratio MM 1.4 MV E Point Septal Separation 0.8 cm DOPPLER AV Peak Velocity 276.0 cm/s LVOT Peak Velocity 117.0 cm/s AV Area Cont Eq vti 1.7 cm squared AV Area Cont Eq pk 1.7 cm squared MV Area PHT 2.9 cm squared Mitral E to A Ratio 0.9 MV E' Velocity 58.5 cm/s Mitral E to MV E' Ratio 11.9 Mitral E to LV E' Lateral Ratio 11.9 Mitral E to LV E' Septal Ratio 12.0 TR Peak Velocity 228.8 cm/s TR Peak Gradient 20.9 mmHg TV Peak E Velocity 47.0 cm/s Right Atrial Pressure 3.0 mmHg Pulmonary Artery Systolic Pressu 23.9 mmHg PV Peak Velocity 147.0 cm/s FINDINGS Left Ventricle Left ventricle is normal in size. LV systolic function is mildly reduced with EF of 40-45%. Mild global hypokinesis with moderate hypokinesis of inferolateral and anterolateral ontiveros seen. Grade 1 diastolic dysfunction Right Ventricle RV is normal in size. RV function is mildly reduced Right Atrium Normal in size Left Atrium Dilated Mitral Valve Moderate mitral annular calcification is seen, annuloplasty ring can not be ruled out.. Mild mitral regurgitation. Aortic Valve Aortic valve is thickened and calcified. Mild aortic stenosis with aortic valve area 1.69 cm squared and mean gradient across aortic valve of 15.3 mmHg. Tricuspid Valve Mild tricuspid regurgitation. Pulmonary artery systolic pressure is normal. Pulmonic Valve Not well visualized. Mild pulmonic regurgitation Pericardium Normal Aorta Normal in size IVC Appears to be normal CONCLUSIONS LV systolic function is mildly reduced with EF of 40 to 45%. Mild global hypokinesis with moderate hypokinesis of inferolateral and anterolateral ontiveros is seen. Grade 1 diastolic dysfunction RV function is mildly reduced. Left atrial dilation Moderate mitral annular calcification is seen. Annuloplasty ring cannot be ruled out. Mild mitral regurgitation Mild aortic stenosis Mild tricuspid regurgitation Mild pulmonic regurgitation No comparison studies are available Beni Yadav MD (Electronically Signed) Final Date: 06 December 2022 15:46 S
[2022-12-06] MEDS: tamsulosin 0.4 mg Capsule 0.8 MG PO (18:13)
[2022-12-06] MEDS: atorvastatin 40 mg Tablet PO (18:13)
[2022-12-06 19:32] LABS: Glucose Point of Care 161 mg/dL (70-110)
[2022-12-06] MEDS: NON-FORMULARY MEDICATION (Bupropion Hcl 100 mg tablet) 100 EACH PO (19:34)
[2022-12-07] VITALS (16 sets, daily range): BP systolic 117–145; BP diastolic 50–84; PULSE 74–96; RESP 17–29; TEMP 36.6; O2SAT 91–100
[2022-12-07] MEDS: guaiFENesin-dextromethorphan UDC 10 mL PO ×3 (02:22→16:17)
[2022-12-07] MEDS: ipratropium-albuterol 3 mL Neb INHALATION ×3 (02:52→19:42)
[2022-12-07 05:02] LABS: Basophils % 0.1 %; Hematocrit 26.4 % (42.0-52.0); Hemoglobin 8.4 g/dL (11.7-16.6); Lymphocytes # 0.3 10^3/uL (0.8-4.8); Lymphocytes % 3.9 %; Mean Corpuscular HGB Conc 31.8 g/dL (30.0-36.0); Mean Corpuscular Hemoglobin 31.3 pg (28.0-34.0); Mean Corpuscular Volume 98.5 fl (80-94); Mean Platelet Volume 10.2 fL (7.4-10.4); Monocytes # 0.4 10^3/uL (0.2-0.9); Monocytes % 4.5 %; Neutrophils # 7.69 10^3/uL (1.8-7.7); Nucleated Red Blood Cells % 0 %; Platelet Count 217 10^3/cmm (130-400); Red Blood Count 2.68 10^6/uL (4.1-5.3); Red Cell Distribution Width 13.6 % (12.1-15.1); White Blood Count 8.5 10^3/uL (4.0-10.0)
[2022-12-07 05:25] LABS: Alanine Aminotransferase 19 U/L (0-41); Albumin Level 3.2 g/dL (3.5-5.2); Alkaline Phosphatase 67 U/L (40-130); Blood Urea Nitrogen 43 mg/dL (8-23); Calcium 9.2 mg/dL (8.5-10.5); Carbon Dioxide 27 mmol/L (22-29); Chloride 98 mmol/L (98-107); Globulin 2.7 g/dL (1.3-4.6); Glucose 217 mg/dL (65-115); Osmolality Calculated 299 mOsm/kg (285-295); Sodium 136 mmol/L (136-145); Total Bilirubin 0.4 mg/dL (0.15-1.2); Total Protein 5.9 g/dL (6.6-8.7)
[2022-12-07 05:47] LABS: Anion Gap 15.6 (5-19); Potassium 4.6 mmol/L (3.5-5.1)
[2022-12-07 05:48] LABS: Aspartate Amino Transferase 21 U/L (0-40)
[2022-12-07] MEDS: CLONazepam 0.5 mg Tablet 0.25 MG PO ×2 (08:36→20:58)
[2022-12-07] MEDS: pantoprazole DR 40 mg Tablet PO (08:36)
[2022-12-07] MEDS: ranolazine (12HR) 500 mg Tablet 1000 MG PO ×2 (08:36→18:09)
[2022-12-07] MEDS: carvedilol 3.125 mg Tablet PO ×2 (08:36→18:08)
[2022-12-07] MEDS: clopidogrel 75 mg Tablet PO (08:36)
[2022-12-07] MEDS: FUROsemide 10 mg/mL SDV 4mL 40 MG IVP (08:38)
[2022-12-07] MEDS: ropinirole 0.25 mg Tablet 0.5 MG PO ×3 (08:39→20:55)
[2022-12-07] MEDS: aspirin 81 mg EC Tablet PO (08:39)
[2022-12-07] MEDS: isosorbide mononitrate ER 60 mg Tablet PO (08:41)
[2022-12-07] MEDS: acetaminophen 325 mg Tablet 650 MG PO (08:44)
--- NOTE | 2022-12-07 09:48 | CTR_ITS ---
PROCEDURE INFORMATION: Exam: CT Abdomen And Pelvis Without Contrast Exam date and time: 12/07/2022 11:00 AM Age: 82 years old Clinical indication: Other: Diarrhea; Abdominal pain; Generalized; Additional info: Monty, abdominal pain, diarrhea TECHNIQUE: Imaging protocol: Computed tomography of the abdomen and pelvis without contrast. Radiation optimization: All CT scans at this facility use at least one of these dose optimization techniques: automated exposure control; mA and/or kV adjustment per patient size (includes targeted exams where dose is matched to clinical indication); or iterative reconstruction. REPORTING DATA: Count of CT and Cardiac NM exams in prior 12 months: This patient has received 3 known CTs and 0 known cardiac nuclear medicine studies in the 12 months prior to the current study. COMPARISON: 1. MR MRCP [id number] 12/06/2022 12:[address] angio chest PE protcl [id number] 12/06/2022 9:14 AM RADIATION DOSE METRICS: Total DLP (mGy-cm): 536.97 FINDINGS: Lungs: Emphysematous changes noted in the partially visualized lung bases. Coronary arteries: Coronary artery calcifications noted. Liver: The liver is normal in size and contour. Gallbladder and bile ducts: The gallbladder is surgically absent. Poorly visualized choledocholithiasis, again noted. Poorly visualized intra and extrahepatic biliary dilatation. Pancreas: The pancreas appears normal. Spleen: The spleen appears normal. Adrenal glands: 2.3 cm right adrenal nodule measuring -9 Hounsfield units likely consistent with a benign adrenal adenoma, similar to prior exam. Kidneys and ureters: The kidneys empty into non-dilated ureters. Punctate bilateral nephrolithiasis versus arterial calcifications. No ureteral stones are identified. No perinephric or periureteral fat tissue stranding is identified. Stomach and bowel: The stomach is unremarkable. The small bowel loops are not abnormally dilated. The large bowel loops are not abnormally dilated. Appendix: No signs of appendicitis. Intraperitoneal space: Surgical clips in the bilateral inguinal regions. Vasculature: The aorta is nonaneurysmal. The IVC appears normal. Lymph nodes: There are no enlarged lymph nodes. Urinary bladder: Diana catheter noted within the urinary bladder which is non-distended. Reproductive: Unremarkable as visualized. Bones/joints: Fracture of the superior body of T12 again noted with minimal distraction of the fracture fragments anteriorly compared to prior exam. Multilevel degenerative disc disease. Right total hip arthroplasty noted. Soft tissues: Unremarkable. Other findings: Motion artifact limiting exam. Limited evaluation due to lack of intravenous and oral contrast. CT/CT abdomen pelvis wo con [id number] IMPRESSION: 1. Limited evaluation due to lack of intravenous and oral contrast and patient motion. 2. Poorly visualized choledocholithiasis, again noted with intra and extrahepatic biliary dilatation. 3. Fracture of the superior body of T12 again noted with minimal distraction of the fracture fragments anteriorly compared to prior exam. COMMENTS: Evaluation of solid organs and vascular structures is limited as no IV contrast was administered.
[2022-12-07] MEDS: sodium chloride 0.9% 1,000 ML 50 ML IV (10:22)
[2022-12-07] MEDS: benzonatate 100 mg Capsule 200 MG PO ×2 (10:22→20:55)
[2022-12-07] MEDS: cefTRIAXone 1,000 MG in sodium chloride 0.9% (plus) 50 ML 100 MG IV (10:22)
[2022-12-07] MEDS: albuterol 2.5 mg/3 mL Neb INHALATION (10:36)
[2022-12-07] MEDS: lidocaine 5% Patch 1 PATCH TOPICAL ×3 (10:47→21:01)
[2022-12-07 11:05] LABS: Add Urine Culture? Yes; Add Urine Microscopic? YES; Bacteria Urine TRACE /hpf; Bilirubin Urine Neg (Negative); Blood Urine 3+ (Negative); Glucose Urine UA Norm (Normal); Ketones Urine Negative (Negative); Leukocyte Esterase Urine Trace (Negative); Mucus Urine 1+ /hpf; Nitrate Urine Negative (Negative); Protein Urine Trace (Negative); RBC Urine >100 /hpf (0-2); Specific Gravity, Urine 1.025 (1.005-1.030); Squamous Epithelial Cell Urine 0-4 /hpf (0-5); Urine Appearance SL Hazy (CLEAR); Urine Color Yellow (Yellow); Urobilinogen Urine Norm (Negative); pH Urine 5 (5-7)
--- NOTE | 2022-12-07 12:41 | P.PN_ITS ---
Subjective Subjective: Noted to have multiple bouts of coughing this morning. Additionally patient has diffuse wheezing on exam bilaterally. His creatinine has trended up to 1.3 today. He did not use his BiPAP overnight as he feels claustrophobic. Medications: Reviewed: Yes Vitals/I&O/Wt Last Vital Signs Temp 97.9 F 12/07/22 04:00 Pulse 78 12/07/22 12:00 Resp 17 12/07/22 12:00 BP 123/58 12/07/22 12:00 Pulse Ox 98 12/07/22 12:00 O2 Del Method 12/07/22 10:38 O2 Flow Rate 3 12/07/22 10:38 FiO2 30 12/07/22 08:00 12/06/22 12/07/22 12/07/22 22:59 06:59 14:59 Intake Total 700 / 820 360 / 360 Output Total 600 / 1000 Balance 100 / -180 360 / 360 Weight last 48 hrs Weight 66.814 kg Weight 68.719 kg Weight 79.923 kg Weight 69.4 kg Physical Exam Narrative: General: Noted to be having a significant bout of cough, per daughter at bedside he has been coughing all morning without relief. HEENT: PERRLA, pupils bilaterally equal and reactive, pallors not present Chest: Diffuse wheezing to auscultation all areas. CVS: S1-S2 regular, no murmurs, no tachycardia, no gallops, no rubs Abdomen: Soft, nontender, no organomegaly, bowel sounds present Neuro: No focal deficits, no facial deformity, AO x3, power 5/5 in all limbs EXT: no edema Urinary Catheter Management: Diana: Cath Placed During This Visit: yes Reason for Continuing Indwelling Catheter: Acute Urinary Retention or Obstruction Urinary Catheter Date of Insertion: 12/05/22 Urinary Catheter Time of Insertion: 15:50 Data 12/07/22 03:59 12/07/22 03:59 Micro: Microbiology 12/06/22 Unknown Gram Stain - Final Sputum - Expectorated Sputum Sputum Culture - Preliminary 12/05/22 09:25 Blood Culture - Preliminary Blood NEGATIVE TO DATE 12/05/22 09:23 Blood Culture - Preliminary Blood NEGATIVE TO DATE A&P Assessment and plan (1) Acute exacerbation of CHF (congestive heart failure): (2) Chest pain: (3) Hypercapnic respiratory failure: (4) Anemia: (5) COPD exacerbation: (6) JIMENA (acute kidney injury): (7) Biliary stone: (8) T12 compression fracture: Plan 82-year-old male with a past medical history of coronary artery disease, CABG, possibly COPD admitted with presenting with chief complaints of chest pain and dyspnea. # Chest pain Low suspicion for ACS currently given no acute ST-T wave changes on EKG and troponin without significant delta at 2 and 6-hour. Troponin is mildly elevated in the 20s range which may be related to CHF. has a past h/o CAD sp CABG. Continue ASA, statin, carvedilol, imdur and ranexa # Acute on chronic systolic and diastolic CHF Clinically patient appears to be having congestive heart failure as evidenced by bilateral pulmonary vascular congestion on CT and elevated BNP, Rales on exam.. he has been on Lasix 40 mg IV every 12 hours while closely monitoring his urine output and kidney function Today he is net negative 800cc, His cr has trended up to 1.3, likely contributed by diuretics and MORRIS. Hold lasix today, Gentle IV hydration with NS @ 50 cc/hr Monitor BMP at 6 pm Echo with EF of 40 to 45%.? ?Mild global hypokinesis with moderate hypokinesis of ?inferolateral and anterolateral ontiveros is seen. Gr 1 diastolic dysfunction # Acute hypercapneic respiratory failure Likely multifactorial related to COPD exacerbation and CHF CTA negative for PE though D dimer 11 Suspect that patient has underlying COPD given compensated hypercapneic resp failure on ABG Does not tolerate BIPAP well # COPD excarbation He is a chronic lifelong smoker, still actively smokes Noted to have significant whezing today on exam Currently on duonebs every 6 hrs and budesondie every 12 hrs Start systemic steroids methylprednisone 40mg iv q8h, wean down as tolerated Likely that patient may be experiencing acute bronchitis Rapid Covid negative on admission, will check resp panel to ascertain if viral etiology Add ceftriaxone empirically for possibility of bacterial bronchitis though this appears less liekly given absence of fever and leukocytosis no consolidation on chest imaging Denies any aspiration episodes # JIMENA: Cr bumped to 1.3 today likely a combination of diuresis and MORRIS for CT imaging hold lasix today Genetle IVF NS @ 50 cc/hr # Incidentally noted t12 compression fracture which may be contributing to pain over left chest wall, place lidocaine patch, add prn tramadol # incidentally noted biliary dilatation with CBD stones. Normal LFTs including T. Bili and ALP. No signs of cholangitis, likely that this is a chronic finding. Will need outpatient follow up with GI # Chronic diarrhea: daughter reports chronci diarrhea since October this year though patient has not had any here. may be malabsorption related to CBD and pancreatic stones. He has not had a colonoscopy in years. [place] check CT abdomen/pelvis w/o contarst # Chronic anemia: Check iron, b12, folate. Patient gets outpatient blood transfusions from time to time. No cause has been ascertained till date. Hb currently low but stable. Check FOBT DVT prophylaxis: Lovenox 40 mg daily Code status: Full code but would not want prolonged life support Attestations Medical Necessity Statement*: Continued admission for COPD exacerbation, hypoxic hypercapneic resp failure, JIMENA, IVF today, monitor fluid balance, add steroids and abdominal imaging Coding Level of Care Code Acute Code for Chg Fwd High MDM includes number and complexity of problems actively addressed during encounter, amount and/or complexity of data reviewed/ordered and described risk of complication, morbidity or mortality of management as documented and High Sylvain e for a total of 60 minutes, includes reviewing past or interval history, examining/interviewing patient, placing orders, counseling patient/family/other support, updating patient/family/other support, documenting encounter and coordinating care Diagnoses Acute exacerbation of CHF (congestive heart failure) I50.9 Chest pain R07.9 Hypercapnic respiratory failure J96.92 Anemia D64.9 COPD exacerbation J44.1 JIMENA (acute kidney injury) N17.9 Biliary stone K80.20 T12 compression fracture S22.080A
[2022-12-07 12:43] LABS: Adenovirus Not Detected (NOT DETECT); Chlamydia Pneumoniae Not Detected (NOT DETECT); Coronavirus 229E,HKU1,NL63,OC4 Not Detected (NOT DETECT); Human Metapneumovirus Not Detected (NOT DETECT); Human Rhinovirus/Enterovirus Not Detected (NOT DETECT); Influenza A Not Detected (NOT DETECT); Influenza A H1 Not Detected (NOT DETECT); Influenza A H1-2009 Not Detected (NOT DETECT); Influenza A H3 Not Detected (NOT DETECT); Influenza B Not Detected (NOT DETECT); Mycoplasma Pneumoniae Not Detected (NOT DETECT); Parainfluenza Virus Type 1 Not Detected (NOT DETECT); Parainfluenza Virus Type 2 Not Detected (NOT DETECT); Parainfluenza Virus Type 3 Not Detected (NOT DETECT); Parainfluenza Virus Type 4 Not Detected (NOT DETECT); Respiratory Syncytial Virus A Not Detected (NOT DETECT); Respiratory Syncytial Virus B Not Detected (NOT DETECT); SARS-COV-2 Not Detected (NOT DETECT)
[2022-12-07] MEDS: TRAMadol 50 mg Tablet PO (16:17)
[2022-12-07] MEDS: tamsulosin 0.4 mg Capsule 0.8 MG PO (18:08)
[2022-12-07] MEDS: atorvastatin 40 mg Tablet PO (18:08)
[2022-12-07 18:34] LABS: Anion Gap 16.1 (5-19); Blood Urea Nitrogen 51 mg/dL (8-23); Calcium 8.9 mg/dL (8.5-10.5); Carbon Dioxide 26 mmol/L (22-29); Chloride 98 mmol/L (98-107); Glucose 233 mg/dL (65-115); Osmolality Calculated 303 mOsm/kg (285-295); Potassium 4.1 mmol/L (3.5-5.1); Sodium 136 mmol/L (136-145)
[2022-12-07] MEDS: budesonide 0.5 mg/2 mL Neb INHALATION (19:42)
[2022-12-07 20:47] LABS: Iron 21 ug/dL (59-158)
[2022-12-07 21:04] LABS: Vitamin B12 657 pg/mL (232-1245)
[2022-12-08] VITALS (13 sets, daily range): BP systolic 112–139; BP diastolic 50–72; PULSE 71–83; RESP 17–30; TEMP 36.2–36.4; O2SAT 95–98
[2022-12-08] MEDS: guaiFENesin-dextromethorphan UDC 10 mL PO ×3 (01:25→16:13)
[2022-12-08] MEDS: benzonatate 100 mg Capsule 200 MG PO ×2 (04:07→21:15)
[2022-12-08 05:11] LABS: Basophils % 0.1 %; Hematocrit 23.9 % (42.0-52.0); Lymphocytes # 0.2 10^3/uL (0.8-4.8); Lymphocytes % 2.6 %; Mean Corpuscular HGB Conc 33.5 g/dL (30.0-36.0); Mean Corpuscular Hemoglobin 31.9 pg (28.0-34.0); Mean Corpuscular Volume 95.2 fl (80-94); Mean Platelet Volume 9.7 fL (7.4-10.4); Monocytes # 0.4 10^3/uL (0.2-0.9); Monocytes % 4.5 %; Neutrophils # 8.01 10^3/uL (1.8-7.7); Neutrophils % 92.3 %; Nucleated Red Blood Cells % 0 %; Platelet Count 209 10^3/cmm (130-400); Red Blood Count 2.51 10^6/uL (4.1-5.3); Red Cell Distribution Width 13.3 % (12.1-15.1); White Blood Count 8.7 10^3/uL (4.0-10.0)
[2022-12-08 05:28] LABS: Alanine Aminotransferase 18 U/L (0-41); Albumin Level 3.2 g/dL (3.5-5.2); Alkaline Phosphatase 66 U/L (40-130); Anion Gap 13.1 (5-19); Aspartate Amino Transferase 14 U/L (0-40); Blood Urea Nitrogen 52 mg/dL (8-23); Calcium 8.8 mg/dL (8.5-10.5); Carbon Dioxide 29 mmol/L (22-29); Chloride 98 mmol/L (98-107); Globulin 2.3 g/dL (1.3-4.6); Glucose 182 mg/dL (65-115); Osmolality Calculated 301 mOsm/kg (285-295); Potassium 4.1 mmol/L (3.5-5.1); Sodium 136 mmol/L (136-145); Total Bilirubin 0.3 mg/dL (0.15-1.2); Total Protein 5.5 g/dL (6.6-8.7)
--- NOTE | 2022-12-08 07:44 | PC.SOCIAL ---
IMM Update Pg. 2 of IMM updated and reviewed with patient, who verbalized understanding. Copy provided.
[2022-12-08] MEDS: clopidogrel 75 mg Tablet PO (08:37)
[2022-12-08] MEDS: pantoprazole DR 40 mg Tablet PO (08:37)
[2022-12-08] MEDS: ropinirole 0.25 mg Tablet 0.5 MG PO ×3 (08:37→21:14)
[2022-12-08] MEDS: aspirin 81 mg EC Tablet PO (08:37)
[2022-12-08] MEDS: isosorbide mononitrate ER 60 mg Tablet PO (08:37)
[2022-12-08] MEDS: carvedilol 3.125 mg Tablet PO ×2 (08:37→17:32)
[2022-12-08] MEDS: cefTRIAXone 1,000 MG in sodium chloride 0.9% (plus) 50 ML 100 MG IV (08:37)
[2022-12-08] MEDS: ranolazine (12HR) 500 mg Tablet 1000 MG PO ×2 (08:37→17:30)
[2022-12-08] MEDS: FUROsemide 40 mg Tablet PO (12:45)
--- NOTE | 2022-12-08 12:52 | PM.PN ---
Subjective Subjective: Hospital course, labs appreciated. Examination patient. Able to get up and down the bed by himself. On 2 L oxygen supplementation slightly more than 95%. Has remained hemodynamically stable and afebrile. Spouse at bedside. Patient states he is feeling better but little depressed and wants to go home as soon as possible. We discussed of possible discharge within next 24 hours. Patient is agreeable. Patient's family had a lot of questions regarding further treatment plan as an outpatient. Requested to speak with daughter over the phone. Care discussed in detail with patient's daughter. Discussed about Lasix as an outpatient, fluid restriction and salt restriction as an outpatient. Medications: Reviewed: Yes Vitals/I&O/Wt Last Vital Signs Temp 97.1 F L 12/08/22 04:00 Pulse 83 12/08/22 08:00 Resp 18 12/08/22 08:00 BP 132/66 12/08/22 08:00 Pulse Ox 97 12/08/22 07:24 O2 Del Method 12/08/22 07:24 O2 Flow Rate 2 12/08/22 07:24 FiO2 30 12/08/22 08:00 12/07/22 12/08/22 12/08/22 22:59 06:59 14:59 Intake Total 360 / 1130 1500 / 2630 240 / 240 Output Total 1500 / 1500 600 / 2100 Balance -1140 / -370 900 / 530 240 / 240 Weight last 48 hrs Weight 67.767 kg Weight 66.814 kg Physical Exam Narrative: General: AOx3, no acute distress, frail-appearing, nasal cannula oxygen supplementation HEENT: PERRLA, pupils bilaterally equal and reactive, pallors not present Chest: Bronchial breath sounds all over the lung field, occasional rhonchi over the lung celeste with coarse crackles CVS: S1-S2 regular, no murmurs, no tachycardia, no gallops, no rubs Abdomen: Soft, nontender, no organomegaly, bowel sounds present Neuro: No focal deficits, no facial deformity, AO x3, power 5/5 in all limbs EXT: no edema Urinary Catheter Management: Diana: Cath Placed During This Visit: yes Reason for Continuing Indwelling Catheter: Accurate Measurement of Urinary Output in Critically Ill Patients Urinary Catheter Date of Insertion: 12/05/22 Urinary Catheter Time of Insertion: 15:50 Data 12/08/22 04:39 12/08/22 04:39 Micro: Microbiology 12/07/22 10:10 Urine Culture - Preliminary Urine,Clean Catch 12/06/22 Unknown Gram Stain - Final Sputum - Expectorated Sputum Sputum Culture - Preliminary A&P Assessment and plan (1) Acute exacerbation of CHF (congestive heart failure): (2) Chest pain: (3) Hypercapnic respiratory failure: (4) Anemia: (5) COPD exacerbation: (6) JIMENA (acute kidney injury): (7) Biliary stone: (8) T12 compression fracture: Plan 82-year-old male with a past medical history of coronary artery disease, CABG, possibly COPD admitted with presenting with chief complaints of chest pain and dyspnea. Acute hypercapnic and hypoxic respiratory failure: Most likely a combination of acute on chronic mixed congestive heart failure along with COPD exacerbation. Acute on chronic systolic and diastolic CHF No further IV fluids. Start on Lasix 40 mg oral daily. We will plan to discharge on same. Strict input output charting, daily weights. Fluid restriction up to 1800 cc. Echo with EF of 40 to 45% along with RWMA and grade 1 diastolic dysfunction, possible mitral valve replacement and mild AAS. CTA negative for PE though D dimer 11 Suspect that patient has underlying COPD given compensated hypercapneic resp failure on ABG Does not tolerate BIPAP well # COPD exacerbation: Continue DuoNebs every 6 hours, budesonide twice daily. We will plan to transition over to nebulization at home. Switch mid-thighs Solu-Medrol to prednisone 40 mg oral daily. Will discharge on slow taper as an outpatient. Respiratory viral panel negative. Less likely to have pneumonia. For now continue with ceftriaxone to finish a 5-day course. On discharge we will switch to oral Augmentin and Levaquin to finish a 5-day course. # JIMENA: Resolved. Most likely in setting of dehydration from diuresis along with MORRIS in setting of CT with contrast imaging. Creatinine back to baseline. BUN slightly elevated. Hold off on fluids. Start on gentle diuresis with Lasix 40 mg oral daily. Will monitor kidney functions and electrolytes daily for now. Ins and out equal since admission. # Chest pain Low suspicion for ACS currently given no acute ST-T wave changes on EKG and troponin without significant delta at 2 and 6-hour. Troponin is mildly elevated in the 20s range which may be related to CHF. has a past h/o CAD sp CABG. Continue ASA, statin, carvedilol, imdur and ranexa # Incidentally noted t12 compression fracture which may be contributing to pain over left chest wall, place lidocaine patch, add prn tramadol # incidentally noted biliary dilatation with CBD stones. Normal LFTs including T. Bili and ALP. No signs of cholangitis, likely that this is a chronic finding. Will need outpatient follow up with GI # Chronic diarrhea: daughter reports chronci diarrhea since October this year though patient has not had any here. may be malabsorption related to CBD and pancreatic stones. He has not had a colonoscopy in years. [place] check CT abdomen/pelvis w/o contarst # Chronic anemia: Check iron, b12, folate. Patient gets outpatient blood transfusions from time to time. No cause has been ascertained till date. Hb currently low but stable. Check FOBT Analgesia: Tylenol as needed, tramadol 50 mg every 8 hourly as needed Glycemic control: Not needed. Check A1c. Nutrition: Cardiac diet CODE STATUS: Discussed in detail with patient and patient's family. Full code. But would not want prolonged life prolonging modalities. PUD prophylaxis: Protonix DVT prophylaxis: SCDs for DVT prophylaxis. Hold off on starting medical prophylaxis given anemia. Discharge planning: Discharge the next 24 hours if patient remains hemodynamically stable to home with home health and possible physical therapy. Patient has not been participating with physical therapy so far. Discussed and reviewed with patient. He is agreeable for now. Continue with care at [facility] This documentation was created by [employer] internal revenue agent software. Every effort was made to ensure accuracy of internal revenue agent. Any obvious errors or omissions should be clarified with the author of the document. Attestations Medical Necessity Statement*: Requires further hospitalization for management of acute on chronic hypoxic and hypercapnic respiratory failure in setting of COPD exacerbation, mixed congestive heart failure, resolving JIMENA while safe discharge planning is sought and kidney functions are monitored while diuretics are restarted Coding Level of Care Code 83688 High MDM includes number and complexity of problems actively addressed during encounter, amount and/or complexity of data reviewed/ordered [ previous or external records, resulted lab(s)/test(s), ordered lab(s)/test(s), independent historian (Care plan discussed in detail with patient's spouse at bedside and patient's daughter over the phone.), independent test interpretation and other healthcare professional discussion] and described risk of complication, morbidity or mortality of management as documented Diagnoses Acute exacerbation of CHF (congestive heart failure) I50.9 Chest pain R07.9 Hypercapnic respiratory failure J96.92 Anemia D64.9 COPD exacerbation J44.1 JIMENA (acute kidney injury) N17.9 Biliary stone K80.20 T12 compression fracture S22.080A
[2022-12-08 13:27] LABS: Iron 33 ug/dL (59-158); Percent Saturation 12.5 % (20-50); Total Iron Binding Capacity 263 mcg/dl; Unsaturated Iron Binding 230 ug/dL (112-347)
[2022-12-08 13:39] LABS: Thyroid Stimulating Hormone 0.27 uIU/mL (0.27-4.20)
[2022-12-08] MEDS: NON-FORMULARY MEDICATION (Bupropion Hcl 100 mg tablet) 100 EACH PO (15:57)
[2022-12-08] MEDS: tamsulosin 0.4 mg Capsule 0.8 MG PO (17:33)
[2022-12-08] MEDS: atorvastatin 40 mg Tablet PO (17:34)
[2022-12-08] MEDS: CLONazepam 0.5 mg Tablet 0.25 MG PO (21:15)
[2022-12-09] VITALS (10 sets, daily range): BP systolic 120–139; BP diastolic 50–72; PULSE 72–92; RESP 18–37; TEMP 36.6; O2SAT 92–97
[2022-12-09 04:49] LABS: Basophils % 0.1 %; Hematocrit 25.8 % (42.0-52.0); Hemoglobin 8.4 g/dL (11.7-16.6); Lymphocytes # 0.4 10^3/uL (0.8-4.8); Lymphocytes % 3.5 %; Mean Corpuscular HGB Conc 32.6 g/dL (30.0-36.0); Mean Corpuscular Hemoglobin 31.1 pg (28.0-34.0); Mean Corpuscular Volume 95.6 fl (80-94); Monocytes # 0.6 10^3/uL (0.2-0.9); Monocytes % 5.5 %; Neutrophils # 9.62 10^3/uL (1.8-7.7); Neutrophils % 90.3 %; Nucleated Red Blood Cells % 0 %; Platelet Count 208 10^3/cmm (130-400); Red Cell Distribution Width 13.3 % (12.1-15.1); White Blood Count 10.6 10^3/uL (4.0-10.0)
[2022-12-09 05:14] LABS: Alanine Aminotransferase 17 U/L (0-41); Albumin Level 3.2 g/dL (3.5-5.2); Alkaline Phosphatase 65 U/L (40-130); Aspartate Amino Transferase 14 U/L (0-40); Blood Urea Nitrogen 41 mg/dL (8-23); Calcium 8.9 mg/dL (8.5-10.5); Carbon Dioxide 30 mmol/L (22-29); Chloride 99 mmol/L (98-107); Chol HDL Ratio 1.82 mg/dL (1.0-5.00); Cholesterol 120 mg/dL (0-200); Globulin 2.3 g/dL (1.3-4.6); Glucose 189 mg/dL (65-115); HDL Cholesterol 66 mg/dL (60-100); LDL Cholesterol Calculated 37 mg/dL (50-129); Osmolality Calculated 301 mOsm/kg (285-295); Sodium 138 mmol/L (136-145); Total Bilirubin 0.3 mg/dL (0.15-1.2); Total Protein 5.5 g/dL (6.6-8.7); Triglycerides 83 mg/dL (0-150); VLDL Cholestrol Calculation 17 mg/dL (0-30)
[2022-12-09 05:19] LABS: Anion Gap 12.9 (5-19)
[2022-12-09 05:20] LABS: Potassium 3.9 mmol/L (3.5-5.1)
[2022-12-09 07:40] LABS: Estmated Average Glucose 97
[2022-12-09] MEDS: aspirin 81 mg EC Tablet PO (08:54)
[2022-12-09] MEDS: ropinirole 0.25 mg Tablet 0.5 MG PO (08:55)
[2022-12-09] MEDS: ranolazine (12HR) 500 mg Tablet 1000 MG PO (08:55)
[2022-12-09] MEDS: pantoprazole DR 40 mg Tablet PO (08:55)
[2022-12-09] MEDS: clopidogrel 75 mg Tablet PO (08:55)
[2022-12-09] MEDS: isosorbide mononitrate ER 60 mg Tablet PO (08:55)
[2022-12-09] MEDS: predniSONE 20 mg Tablet 40 MG PO (08:55)
[2022-12-09] MEDS: carvedilol 3.125 mg Tablet PO (08:55)
[2022-12-09] MEDS: guaiFENesin-dextromethorphan UDC 10 mL PO (08:56)
[2022-12-09] MEDS: cefTRIAXone 1,000 MG in sodium chloride 0.9% (plus) 50 ML 100 MG IV (09:00)
[2022-12-09] MEDS: lidocaine 5% Patch 1 PATCH TOPICAL (09:23)
--- NOTE | 2022-12-09 11:36 | P.DS_ITS ---
Discharge Providers Date of Admission: 12/05/22 15:05 Date of Discharge: December 09, 2022 Attending Provider at Admission: Kristal Cobos MD Attending Provider at Discharge: Murray Clemons MD Diagnoses at Discharge Discharge Diagnosis (1) Acute exacerbation of CHF (congestive heart failure): Status: Acute (2) Chest pain: Status: Acute (3) Hypercapnic respiratory failure: Status: Acute (4) Anemia: Status: Acute (5) COPD exacerbation: Status: Acute (6) JIMENA (acute kidney injury): Status: Acute (7) Biliary stone: Status: Acute (8) T12 compression fracture: Status: Acute Reason for Visit Reason for Visit: DIFFICULTY BREATHING/ WHEEZING Brief History: History as per [facility]: History is somewhat hard to obtain as patient is extremely hard of hearing.? Juan Gann is a 82 year old male with a past medical history of coronary artery disease, status post CABG, heart valve repair, the patient is unsure which valve was replaced, typically follows with a income tax advisor at [facility].? He has recently been started on Lasix for worsening shortness of breath. Patient presents to the emergency room complaining of left-sided chest pain.? He rates the pain as 4-5 out of 10, located along the left thoracic wall, nonradiating, no apparent exacerbating or relieving factors.? He states he has been having this chest pain on and off for the last month or so.? No apparent correlation with exertion.? He is also noted to be tachypneic and short of breath in the ER.? Respiratory rate of 25/min.? CT of the chest that was performed today showed bilateral pulmonary vascular congestion. This is not relieved after receiving 20 mg of IV Lasix in the emergency room.? EKG today does not shows left axis deviation with multiple VPCs.? No acute ST-T wave changes are noted.? Troponin series is without significant delta at 2 and 6 hours.? Patient does not feel he is more short of breath than usual.? He apparently has a BiPAP at home as he points to the machine placed next to him but states cannot tolerate it.? His ABG showed hypercapnic respiratory failure with pH 7.34/56 point 8/102/30 0.3.? Patient denies any past history of COPD, however his lungs have shown hyperinflation consistently and review of home medication shows that patient is on DuoNeb inhalation at home. He denies any recent fever or chills.? He does have a cough but does not think this is worsened over baseline.? No sick contacts. Hospital Course Hospital Course Patient was admitted to hospital further evaluation and management of hypercapnic respiratory failure in setting of COPD and CHF exacerbation. On admission patient D-dimer was elevated but PE was ruled out with a negative CTA. He was started on IV diuretics along with inhalation treatment. As his improvement was very gradual steroids were added. During hospitalization his blood cultures remain negative but sputum culture became positive for Moraxella. He was covered with IV ceftriaxone during hospitalization. Echocardiogram was done which showed an EF of 40 to 45%, mild global LV hypokinesia with moderate hypokinesia of inferior lateral anterolateral wall, grade 1 diastolic dysfunction, mild RV dysfunction, left atrial dilatation along valvular abnormalities as below. On CTA it was also seen that patient has a T12 incidental fracture along with choledocholithiasis with intra and extrahepatic biliary dilatation. MRCP was done which ruled out cholecystitis. CT abdomen pelvis ruled out any further abnormalities or focus of concerns. His hospitalization was otherwise unremarkable and he gradually improved. Viola alvraado has been hemodynamically stable during hospitalization. He has been discharged hemodynamically stable condition on oral prednisone for 3 days, oral Lasix 40 mg daily and Augmentin for 5 days. Going forward he is to maintain fluid restriction up to 1500 to 2 L along with restricted salt intake to less than 2 g. He is to follow-up with his primary care provider within next 1 week and with a income tax advisor at an earliest appointment. Physical Exam Narrative: General: AOx3, no acute distress, frail-appearing, nasal cannula oxygen supplementation HEENT: PERRLA, pupils bilaterally equal and reactive, pallors not present Chest: Bronchial breath sounds all over the lung field, occasional rhonchi over the lung celeste with coarse crackles CVS: S1-S2 regular, no murmurs, no tachycardia, no gallops, no rubs Abdomen: Soft, nontender, no organomegaly, bowel sounds present Neuro: No focal deficits, no facial deformity, AO x3, power 5/5 in all limbs EXT: no edema Urinary Catheter Management: Diana: Cath Placed During This Visit: yes Reason for Continuing Indwelling Catheter: Accurate Measurement of Urinary Output in Critically Ill Patients Urinary Catheter Date of Insertion: 12/05/22 Urinary Catheter Time of Insertion: 15:50 Discharge Data Studies Completed and Pending Completed Studies During Hospitalization Category Date Time Status CT abdomen pelvis wo con [id number] Routine Cat Scan 12/07/22 09:[address] angio chest PE protcl [id number] Stat Cat Scan 12/06/22 10:[address] chest w con* [id number] Stat Cat Scan 12/05/22 09:26 Completed XR chest 1V portable [id number] Stat Exams 12/05/22 08:50 Completed MR MRCP [id number] Urgent MRI 12/06/22 11:01 Completed CV. echo complete* [id number] Routine Ultrasound 12/06/22 14:23 Completed Pending at discharge Category Date Time Status ABG FULL [Arterial Blood Gas Full] Stat Lab 12/05/22 20:31 Results Blood Culture Stat Lab 12/05/22 09:23 Results C DIFF [Clostridioides Difficile PCR] Routine Lab 12/07/22 09:48 Uncollected Fecal Occult Blood [Immunochemical Fecal OCB] Routine Lab 12/07/22 09:48 Uncollected Radiology Impressions Chest X-Ray 12/05/22 08:50 IMPRESSION: Imaging findings suggestive of pulmonary congestion. Pneumonia should be excluded clinically. Chest CT 12/05/22 09:26 IMPRESSION: 1. Mild diffuse interstitial thickening. Differential includes mild pulmonary venous congestion and interstitial fibrosis. 2. Centrilobular emphysema. 3. Prior CABG. 4. No dense consolidation or pneumonia. Chest CTA 12/06/22 10:00 IMPRESSION: 1. No pulmonary embolism identified. 2. Compression fracture at T12 with interval mild height loss. 3. Findings concerning for choledocholithiasis with intra and extrahepatic biliary dilatation. Recommend follow-up MRCP versus ERCP. COMMENTS: Consistent with the [employer]'s Incidental Findings Committee white paper (J Am Hansa Radiol 2017): Any incidental adrenal lesion less than 1 cm is likely benign. No follow-up imaging is recommended for these lesions per consensus recommendations based on imaging criteria. Further lab evaluation could be pursued if warranted based on clinical findings. Cholangiopancreatography MRI 12/06/22 11:01 IMPRESSION: Choledocholithiasis with intrahepatic and extrahepatic ductal dilatation as described above. Abdomen/Pelvis CT 12/07/22 09:48 IMPRESSION: 1. Limited evaluation due to lack of intravenous and oral contrast and patient motion. 2. Poorly visualized choledocholithiasis, again noted with intra and extrahepatic biliary dilatation. 3. Fracture of the superior body of T12 again noted with minimal distraction of the fracture fragments anteriorly compared to prior exam. COMMENTS: Evaluation of solid organs and vascular structures is limited as no IV contrast was administered. Microbiology 12/07/22 10:10 Urine,Clean Catch Urine Culture - Final 12/06/22 Unknown Sputum - Expectorated Sputum Gram Stain - Final 12/06/22 Unknown Sputum - Expectorated Sputum Sputum Culture - Final Moraxella catarrhalis 12/05/22 09:25 Blood Blood Culture - Preliminary NEGATIVE TO DATE 12/05/22 09:23 Blood Blood Culture - Preliminary NEGATIVE TO DATE Echocardiogram: CONCLUSIONS ?LV systolic function is mildly reduced with EF of 40 to 45%.? ?Mild global hypokinesis with moderate hypokinesis of?inferolateral and anterolateral ontiveros is seen. ?Grade 1 diastolic dysfunction ?RV function is mildly reduced. ?Left atrial dilation ?Moderate mitral annular calcification is seen.? Annuloplasty?ring cannot be ruled out. ?Mild mitral regurgitation ?Mild aortic stenosis ?Mild tricuspid regurgitation ?Mild pulmonic regurgitation ?No comparison studies are available. ?Beni Yadav MD ?(Electronically Signed) ?Final Date:? ? ? December 22 Laboratory Results WBC 10.6 10^3/uL (4.0-10.0) H 12/09/22 04:22 RBC 2.70 10^6/uL (4.1-5.3) L 12/09/22 04:22 Hgb 8.4 g/dL (11.7-16.6) L 12/09/22 04:22 Hct 25.8 % (42.0-52.0) L 12/09/22 04:22 MCV 95.6 fl (80-94) H 12/09/22 04:22 MCH 31.1 pg (28.0-34.0) 12/09/22 04:22 MCHC 32.6 g/dL (30.0-36.0) 12/09/22 04:22 RDW 13.3 % (12.1-15.1) 12/09/22 04:22 Plt Count 208 10^3/cmm (130-400) 12/09/22 04:22 MPV 10.0 fL (7.4-10.4) 12/09/22 04:22 Neut % (Auto) 90.3 % 12/09/22 04:22 Lymph % (Auto) 3.5 % 12/09/22 04:22 Wallace % (Auto) 5.5 % 12/09/22 04:22 Eos % (Auto) 0.0 % 12/09/22 04:22 Baso % (Auto) 0.1 % 12/09/22 04:22 Neut # (Auto) 9.62 10^3/uL (1.8-7.7) H 12/09/22 04:22 Lymph # (Auto) 0.4 10^3/uL (0.8-4.8) L 12/09/22 04:22 Wallace # (Auto) 0.6 10^3/uL (0.2-0.9) 12/09/22 04:22 Eos # (Auto) 0.0 10^3/uL (0.0-0.8) 12/09/22 04:22 Baso # (Auto) 0.0 10^3/uL (0.0-0.1) 12/09/22 04:22 Nucleated RBC % (auto) 0 % 12/09/22 04:22 Nucleated RBCs # 0.0 /100WBC 12/09/22 04:22 D-Dimer 11.86 ug/mIFEU (0-0.59) H 12/05/22 15:06 Specimen Type Arterial 12/05/22 20:31 Sample Site Radial, left 12/05/22 20:31 ABG pH 7.36 (7.35-7.45) 12/05/22 20:31 ABG pCO2 54.3 mmHg (35-45) H 12/05/22 20:31 ABG pO2 142.0 mmHg (80.0-100.0) H 12/05/22 20:31 ABG HCO3 30.5 mmol/L (22-26) H 12/05/22 20:31 ABG O2 Saturation 99.8 12/05/22 20:31 ABG Base Excess 4.1 mmol/L (-2.0-2.0) H 12/05/22 20:31 Ankur Test Pos 12/05/22 20:31 Hematocrit 32.6 % (42-52) L 12/05/22 20:31 Hgb O2 Saturation 97.2 % (95-100) 12/05/22 20:31 Carboxyhemoglobin 1.9 %THgb (0.4-20.1) 12/05/22 20:31 Methemoglobin 0.8 % (0.4-1.5) 12/05/22 20:31 Total Hemoglobin 10.6 g/dL (14-18) L 12/05/22 20:31 Sodium 139.0 mmol/L (131-143) 12/05/22 20:31 Potassium 4.1 mmol/L (3.5-5.0) 12/05/22 20:31 Glucose 197.0 mg/dL (70-115) H 12/05/22 20:31 Ionized Calcium 1.3 mmol/L (1.1-1.4) 12/05/22 20:31 O2 Delivery Device Nc 12/05/22 20:31 O2 Liters/Min 5.0 % 12/05/22 20:31 Etl Bi Developer ID [email or web address] 12/05/22 20:31 Sodium 138 mmol/L (136-145) 12/09/22 04:22 Potassium 3.9 mmol/L (3.5-5.1) 12/09/22 04:22 Chloride 99 mmol/L (98-107) 12/09/22 04:22 Carbon Dioxide 30 mmol/L (22-29) H 12/09/22 04:22 Anion Gap 12.9 (5-19) 12/09/22 04:22 BUN 41 mg/dL (8-23) H 12/09/22 04:22 Creatinine 1.0 mg/dL (0.7-1.2) 12/09/22 04:22 GFR Calculation Not Reportable 12/09/22 04:22 Glucose 189 mg/dL (65-115) H 12/09/22 04:22 POC Glucose 161 mg/dL (70-110) H 12/06/22 19:26 Estimat Average Glucose 97 12/09/22 04:22 Hemoglobin A1c 5.0 % (4.0-6.0) 12/09/22 04:22 Calculated Osmolality 301 mOsm/kg (285-295) H 12/09/22 04:22 Lactic Acid 0.9 mmol/L (0.5-2.2) 12/05/22 09:23 Calcium 8.9 mg/dL (8.5-10.5) 12/09/22 04:22 Iron 33 ug/dL (59-158) L 12/08/22 04:39 TIBC 263 mcg/dl 12/08/22 04:39 % Saturation 12.5 % (20-50) L 12/08/22 04:39 Unsat Iron Binding 230 ug/dL (112-347) 12/08/22 04:39 Total Bilirubin 0.3 mg/dL (0.15-1.2) 12/09/22 04:22 AST 14 U/L (0-40) 12/09/22 04:22 ALT 17 U/L (0-41) 12/09/22 04:22 Alkaline Phosphatase 65 U/L (40-130) 12/09/22 04:22 Troponin T Baseline 41 ng/L (0-15) H 12/05/22 20:36 Troponin T 120 Minute 42.62 ng/L (0-15) H 12/05/22 22:20 Delta Troponin T 1.62 ABS# (0-10) 12/05/22 22:20 Troponin T Hi Sens 6Hr 43.10 ng/L (0-15) H 12/06/22 03:04 Troponin T Hi Sens 6Hr Delta 2.10 ng/L (0-12) 12/06/22 03:04 C-Reactive Protein 145.6 mg/L (0.0-4.9) H 12/05/22 07:54 NT-Pro-B Natriuret Pep 6946 pg/mL (0-450) H 12/05/22 07:54 Total Protein 5.5 g/dL (6.6-8.7) L 12/09/22 04:22 Albumin 3.2 g/dL (3.5-5.2) L 12/09/22 04:22 Globulin 2.3 g/dL (1.3-4.6) 12/09/22 04:22 Triglycerides 83 mg/dL (0-150) 12/09/22 04:22 Cholesterol 120 mg/dL (0-200) 12/09/22 04:22 LDL Cholesterol, Calc 37 mg/dL (50-129) L 12/09/22 04:22 Total VLDL Cholesterol 17 mg/dL (0-30) 12/09/22 04:22 HDL Cholesterol 66 mg/dL (60-100) 12/09/22 04:22 Cholesterol/HDL Ratio 1.82 mg/dL (1.0-5.00) 12/09/22 04:22 Vitamin B12 657 pg/mL (232-1245) 12/07/22 03:59 Folate 15.0 ng/mL (4.5-32.2) 12/07/22 18:00 Procalcitonin 0.08 ng/mL (0-0.5) 12/05/22 07:54 TSH 0.27 uIU/mL (0.27-4.20) 12/08/22 04:39 Urine Color Yellow (Yellow) 12/07/22 10:10 Urine Appearance Sl hazy (CLEAR) A 12/07/22 10:10 Urine pH 5 (5-7) 12/07/22 10:10 Ur Specific [place] 1.025 (1.005-1.030) 12/07/22 10:10 Urine Protein Trace (Negative) 12/07/22 10:10 Urine Glucose (UA) Norm (Normal) 12/07/22 10:10 Urine Ketones Negative (Negative) 12/07/22 10:10 Urine Blood 3+ (Negative) H 12/07/22 10:10 Urine Nitrate Negative (Negative) 12/07/22 10:10 Urine Bilirubin Neg (Negative) 12/07/22 10:10 Urine Urobilinogen Norm mg/dL (Negative) 12/07/22 10:10 Ur Leukocyte Esterase Trace (Negative) H 12/07/22 10:10 Urine RBC >100 /hpf (0-2) H 12/07/22 10:10 Urine WBC 10-15 /hpf (0-5) H 12/07/22 10:10 Ur Squamous Epith Cells 0-4 /hpf (0-5) H 12/07/22 10:10 Amorphous Sediment Not Reportable 12/07/22 10:10 Urine Bacteria Trace /hpf (NONE) 12/07/22 10:10 Urine Mucus 1+ /hpf 12/07/22 10:10 Nasal Influ A H1 2009 PCR Not detected (NOT DETECT) 12/07/22 10:10 Adenovirus (PCR) Not detected (NOT DETECT) 12/07/22 10:10 C. pneumoniae DNA (PCR) Not detected (NOT DETECT) 12/07/22 10:10 Coronavirus 229E (PCR) Not detected (NOT DETECT) 12/07/22 10:10 Human Metapneumovir PCR Not detected (NOT DETECT) 12/07/22 10:10 Influenza A (H1) PCR Not detected (NOT DETECT) 12/07/22 10:10 Influenza A (H3) PCR Not detected (NOT DETECT) 12/07/22 10:10 Influenza Type A (PCR) Not detected (NOT DETECT) 12/07/22 10:10 Influenza Type B (PCR) Not detected (NOT DETECT) 12/07/22 10:10 M. pneumoniae (PCR) Not detected (NOT DETECT) 12/07/22 10:10 Parainfluenza 1 (PCR) Not detected (NOT DETECT) 12/07/22 10:10 Parainfluenza 2 (PCR) Not detected (NOT DETECT) 12/07/22 10:10 Parainfluenza 3 (PCR) Not detected (NOT DETECT) 12/07/22 10:10 Parainfluenza 4 (PCR) Not detected (NOT DETECT) 12/07/22 10:10 RSV Type A (PCR) Not detected (NOT DETECT) 12/07/22 10:10 RSV Type B (PCR) Not detected (NOT DETECT) 12/07/22 10:10 Entero/Rhino (PCR) Not detected (NOT DETECT) 12/07/22 10:10 SARS-CoV-2 (PCR) Not detected (NOT DETECT) 12/07/22 10:10 Vitals Last Vital Signs Temp 97.9 F 12/09/22 08:00 Pulse 86 12/09/22 08:00 Resp 25 H 12/09/22 08:00 BP 139/72 12/09/22 08:00 Pulse Ox 94 12/09/22 07:35 O2 Del Method 12/09/22 07:35 O2 Flow Rate 4 12/09/22 04:00 FiO2 30 12/09/22 08:00 Discharge Plan Discharge Patient Disposition: Home Health Service Condition: Stable Prescriptions: New tramadol 50 mg Tablet 50 mg PO Q8H PRN (Reason: Moderate Pain) Qty: 20 0RF dextromethorphan-guaifenesin 10-100 mg/5 mL Syrup 10 ml PO Q6H PRN (Reason: Cough) Qty: 237 0RF prednisone 20 mg Tablet 40 mg PO DAILY Qty: 6 0RF amoxicillin-pot clavulanate [Augmentin] 500-125 mg tablet 1 tab PO Q12H Qty: 10 0RF furosemide [Lasix] 40 mg tablet 40 mg PO DAILY Qty: 30 0RF Continued ipratropium-albuterol 0.5 mg-3 mg(2.5 mg base)/3 mL solution for nebulization 3 ml INHALATION Q4H PRN (Reason: Shortness Of Breath Or Wheezing) diphenoxylate-atropine 2.5-0.025 mg tablet 1 tab PO QID PRN (Reason: Diarrhea) melatonin 3 mg Tablet 3 mg PO BEDTIME Aspir-81 81 mg Tablet,Delayed Release (Dr/Ec) 81 mg PO DAILY bupropion HCl 100 mg tablet 100 mg PO TID isosorbide mononitrate 60 mg tablet extended release 24 hr 60 mg PO DAILY tamsulosin 0.4 mg capsule 0.8 mg PO QPM pantoprazole 40 mg tablet,delayed release (DR/EC) 40 mg PO DAILY ropinirole 0.5 mg Tablet 0.5 mg PO TID Nitrostat 0.4 mg Tablet, Sublingual 0.4 mg SUBLINGUAL Q5M PRN (Reason: Chest Pain) Rx Instructions: do not exceed 3 doses per episode ranolazine 1,000 mg tablet extended release 12 hr 1,000 mg PO BID atorvastatin 40 mg Tablet 40 mg PO QPM carvedilol 6.25 mg Tablet 3.125 mg PO BID Rx Instructions: must administer with a meal/food clopidogrel 75 mg tablet 75 mg PO DAILY clonazepam 0.25 mg tablet,disintegrating 0.25 mg PO DAILY PRN (Reason: Anxiety) Discontinued lisinopril 5 mg Tablet 2.5 mg PO DAILY PRN (Reason: Blood Pressure) Discharge Orders: Discharge Order (Routine); Ordered 12/09/22 Ordered By: Murray Clemons Referrals: Arianna Cason MD [Physician] - (Please follow-up with Dr. Cason today at 3:00P.M. ) Discharge Diet: Cardiac Discharge Activity: Resume usual activity and Increase activity as tolerated Patient Instructions: Acute Kidney Injury (DC), CHF Stoplight, COPD Stoplight, Chest Pain Stoplight, Opioid Safety Activity Restrictions/Additional Instructions: Fluid restriction upto 2710-1627 L Salt restriction upto 2gm/day. Avoid adding extra salt. Repeat BMP in 1 week. F/u with PCP in 1 week. F/u with income tax advisor at earliest. Take Augmentin which the antibiotic for next 5 days. Take Augmentin twice daily. Take prednisone which is the steroid for next 3 more days. Discharge Attestations Time Spent in Discharge Care*: greater than 30 min Specific Discharge Activities: educating patient, educating and/or supporting family/caregiver, discussing with pcp/other providers, discussing with porter sample case/social workers/dc planners, documenting/other paperwork and evaluating patient/reviewing data Status at Discharge: Cognitive status at discharge: cognitively intact , Behavioral status at discharge: cooperative , Functional status at discharge: uses cane/walker , Overall status at discharge: patient is progressing back to baseline Quality Metrics Clinical Quality Measures [ No reported AMI, CVA or VTE this stay] Coding Level of Care Code 62507 Total time (in minutes) for Discharge: 50 Diagnoses Acute exacerbation of CHF (congestive heart failure) I50.9 Chest pain R07.9 Hypercapnic respiratory failure J96.92 Anemia D64.9 COPD exacerbation J44.1 JIMENA (acute kidney injury) N17.9 Biliary stone K80.20 T12 compression fracture S22.080A
== END 2022-12-09 14:45 | disposition home health service (06) | DRG 291 ==
LOC: ER 10:46 → MEDSURG 16:14 → CSU 12-06 05:56
PROVIDERS: Admitting Provider Student in an Organized Health Care Education/Training Program; Emergency Provider Emergency Medicine; PCP Family Medicine; Visit Provider Student in an Organized Health Care Education/Training Program
DX: I11.0 Hypertensive heart disease with heart failure (principal); I50.43 Acute on chronic combined systolic (congestive) and diastolic (congestive) heart failure; J96.22 Acute and chronic respiratory failure with hypercapnia; J96.21 Acute and chronic respiratory failure with hypoxia; J44.1 Chronic obstructive pulmonary disease with (acute) exacerbation; N17.9 Acute kidney failure, unspecified; M48.54XA Collapsed vertebra, not elsewhere classified, thoracic region, initial encounter for fracture; I25.10 Atherosclerotic heart disease of native coronary artery without angina pectoris; D64.9 Anemia, unspecified; K52.9 Noninfective gastroenteritis and colitis, unspecified; K80.50 Calculus of bile duct without cholangitis or cholecystitis without obstruction; I48.91 Unspecified atrial fibrillation; F17.200 Nicotine dependence, unspecified, uncomplicated; Z95.1 Presence of aortocoronary bypass graft; Z99.81 Dependence on supplemental oxygen
CPT/HCPCS: 36415; 36416; 36600; 51702; 71045; 71260; 71275; 74176; 74181; 80048; 80051; 80053; 80061; 81001; 82330; 82607; 82746; 82805; 82962; 83036; 83540; 83550; 83605; 83880; 84145; 84443; 84484; 85025; 85378; 86140; 87040; 87070; 87077; 87086; 87205; 87486; 87581; 87633; 87635; 92523; 92610; 93005; 93306; 94640; 94660; 96372; 96374; 96375; 97110; 97116; 97161; 97165; 97535; 99291; J0360; J0696; J1170; J1650; J1940; J2920; J2930; J7030; J7512; J7613; J7626; Q9967

== ENCOUNTER → 2022-12-09 14:49 | Outpatient (BNVA) | payer OTHER, SELFPAY | PROVIDERS: Visit Provider Internal Medicine Cardiovascular Disease | DX: I11.0 Hypertensive heart disease with heart failure (principal); I50.9 Heart failure, unspecified; I25.10 Atherosclerotic heart disease of native coronary artery without angina pectoris; J44.1 Chronic obstructive pulmonary disease with (acute) exacerbation; N17.9 Acute kidney failure, unspecified; E78.5 Hyperlipidemia, unspecified; I48.20 Chronic atrial fibrillation, unspecified; I73.9 Peripheral vascular disease, unspecified; Z95.1 Presence of aortocoronary bypass graft | CPT/HCPCS: 99205 ==